=== PATIENT | female | born 1995 | race Caucasian/White ===

== ENCOUNTER → 2016-02-27 | Outpatient (REF) | payer OTHER, MEDICAID ==
[~2016-02-27] MED LIST: ACET50TA PO; BUSP10TA PO; CHIL1CHW3 PO; FLUO20CA8 PO; IBUP-1114 PO
== END ==
LOC: M LAB REF 13:01
PROVIDERS: ATTEND Advanced Practice Midwife
DX: Z11.3 Encounter for screening for infections with a predominantly sexual mode of transmission (principal)

== ENCOUNTER → 2016-03-04 | Outpatient (REF) | payer OTHER, MEDICAID ==
[2016-03-06 00:08] LABS: HEPATITIS C QUANTITATION 530 IU/mL (.)
== END ==
LOC: M SFHCPLAZ 10:59
PROVIDERS: ATTEND Internal Medicine Infectious Disease
DX: B19.20 Unspecified viral hepatitis C without hepatic coma (principal)

== ENCOUNTER → 2016-05-20 | Outpatient (REF) | payer OTHER, MEDICAID ==
[2016-05-22 10:15] LABS: HEPATITIS C QUANTITATION <15 IU/mL (.)
== END ==
LOC: M SFHCPLAZ 10:43
PROVIDERS: ATTEND Internal Medicine Infectious Disease
DX: B19.20 Unspecified viral hepatitis C without hepatic coma (principal)

== ENCOUNTER → 2016-07-01 | Outpatient (REF) | payer OTHER, MEDICAID ==
[2016-07-01 11:39] LABS: ALBUMIN 3.7 GM/DL (3.2-5.2); ALBUMIN/GLOBULIN RATIO 1.23 (1.00-1.93); ALKALINE PHOSPHATASE 122 U/L (45-117); ALT/SGPT 41 U/L (12-78); AST/SGOT 14 U/L (15-37); BILIRUBIN,DIRECT < 0.1 MG/DL (0.0-0.2); BILIRUBIN,TOTAL 0.4 MG/DL (0.2-1.0); TOTAL PROTEIN 6.7 GM/DL (6.4-8.2)
[2016-07-03 00:07] LABS: HEPATITIS C QUANTITATION <15 IU/mL (.)
== END ==
LOC: M SFHCPLAZ 10:03
PROVIDERS: ATTEND Internal Medicine Infectious Disease
DX: B17.10 Acute hepatitis C without hepatic coma (principal)

== ENCOUNTER → 2016-09-11 | Outpatient (REF) | payer OTHER, MEDICAID | LOC: M LAB REF 16:41 | PROVIDERS: ATTEND Physician Assistant | DX: R30.0 Dysuria (principal) ==

== ENCOUNTER → 2016-10-07 | Outpatient (CLI) | payer OTHER, MEDICAID ==
[2016-10-07 14:19] LABS: ALBUMIN 3.8 GM/DL (3.2-5.2); ALBUMIN/GLOBULIN RATIO 1.36 (1.00-1.93); BILIRUBIN,DIRECT 0.2 MG/DL (0.0-0.2); BILIRUBIN,TOTAL 0.5 MG/DL (0.2-1.0); TOTAL PROTEIN 6.6 GM/DL (6.4-8.2)
[2016-10-11 00:06] LABS: HEPATITIS C QUANTITATION 1210 IU/mL (.)
[2016-10-11 10:33] LABS: HCV GENOTYPE REFLEX NS5QA Indicated (.)
== END ==
LOC: M LAB 12:47
PROVIDERS: ATTEND Internal Medicine Infectious Disease
DX: B17.10 Acute hepatitis C without hepatic coma (principal)

== ENCOUNTER → 2017-01-13 | Outpatient (REF) | payer OTHER, MEDICAID ==
[2017-01-13 15:10] LABS: ALBUMIN 3.9 GM/DL (3.2-5.2); ALBUMIN/GLOBULIN RATIO 1.44 (1.00-1.93); BILIRUBIN,DIRECT 0.2 MG/DL (0.0-0.2); BILIRUBIN,TOTAL 0.5 MG/DL (0.2-1.0); TOTAL PROTEIN 6.6 GM/DL (6.4-8.2)
[2017-01-16 14:18] LABS: HEPATITIS C QUANTITATION HCV Not Detected IU/mL (.)
== END ==
LOC: M SFHCPLAZ 10:38
PROVIDERS: ATTEND Internal Medicine Infectious Disease
DX: B18.2 Chronic viral hepatitis C (principal)

== ENCOUNTER → 2017-04-14 | Outpatient (REF) | payer OTHER, MEDICAID ==
[2017-04-14 13:17] LABS: ALBUMIN 3.7 GM/DL (3.2-5.2); ALBUMIN/GLOBULIN RATIO 1.48 (1.00-1.93); ALKALINE PHOSPHATASE 88 U/L (45-117); ALT/SGPT 34 U/L (12-78); AST/SGOT 11 U/L (7-37); BILIRUBIN,DIRECT 0.1 MG/DL (0.0-0.2); BILIRUBIN,TOTAL 0.5 MG/DL (0.2-1.0); TOTAL PROTEIN 6.2 GM/DL (6.4-8.2)
[2017-04-16 08:07] LABS: HEPATITIS C QUANTITATION HCV Not Detected IU/mL (.)
== END ==
LOC: M SFHCPLAZ 11:47
DX: B18.2 Chronic viral hepatitis C (principal)

== ENCOUNTER → 2017-07-10 | Outpatient (CLI) | payer OTHER, MEDICAID ==
[2017-07-10 17:36] LABS: CONTROL LINE HCG INT CTR LINE PRESENT; HCG, SERUM QUALITATIVE NEGATIVE (NEGATIVE)
== END ==
LOC: M SMT 10:33
DX: N91.2 Amenorrhea, unspecified (principal)

== ENCOUNTER 2017-11-01 13:11 | Emergency (ER) | payer OTHER, MEDICAID | END 2017-11-01 15:00 | disposition home or self-care (01) | LOC: M ED 13:11 | DX: S09.90XA Unspecified injury of head, initial encounter (principal); T14.8XXA Other injury of unspecified body region, initial encounter; V86.95XA Unspecified occupant of 3- or 4- wheeled all-terrain vehicle (ATV) injured in nontraffic accident, initial encounter; Y92.89 Other specified places as the place of occurrence of the external cause; Z88.1 Allergy status to other antibiotic agents; Z88.8 Allergy status to other drugs, medicaments and biological substances; Z91.013 Allergy to seafood; F17.210 Nicotine dependence, cigarettes, uncomplicated | CPT/HCPCS: 73552 ==

== ENCOUNTER → 2018-05-25 | Outpatient (REF) | payer OTHER ==
[~2018-05-25] MED LIST changes: -ACET50TA PO; +IBUP-1022 PO; +MAPA500T2 PO
== END ==
LOC: M LAB REF 16:25
PROVIDERS: ATTEND Physician Assistant
DX: J02.9 Acute pharyngitis, unspecified (principal)

== ENCOUNTER → 2018-10-14 | Outpatient (REF) | payer OTHER ==
[2018-10-14 18:01] LABS: APPEARANCE, URINE TURBID (CLEAR); BACTERIA, URINE AUTO 2+ (NEGATIVE); BILIRUBIN, URINE AUTO NEGATIVE (NEGATIVE); BLOOD, URINE BLOOD 3+ (NEGATIVE); COLOR, URINE YELLOW (YELLOW); GLUCOSE, URINE (UA) AUTO NEGATIVE (NEGATIVE); KETONE, URINE AUTO NEGATIVE (NEGATIVE); LEUKOCYTE ESTERASE, URINE AUTO 3+ (NEGATIVE); MUCUS, URINE SMALL (NEGATIVE); NITRITE, URINE AUTO POSITIVE (NEGATIVE); PROTEIN, URINE AUTO 2+ mg/dL (NEGATIVE); RBC, URINE AUTO TNTC /HPF (0-3); SPECIFIC GRAVITY URINE AUTO 1.015 (1.002-1.035); SQUAMOUS EPITHELIAL CELL UR AU 3 /HPF (0-6); UROBILINOGEN, URINE AUTO 0.2 mg/dL (0.0-2.0); WBC, URINE AUTO TNTC /HPF (0-3)
== END ==
LOC: M LAB REF 17:25
PROVIDERS: ATTEND Physician Assistant Medical
DX: N39.0 Urinary tract infection, site not specified (principal)

== ENCOUNTER → 2019-03-09 | Outpatient (CLI) | payer OTHER, MEDICAID ==
[~2019-03-09] MED LIST changes: +FLUO20CA20 PO; -FLUO20CA8 PO
--- NOTE | 2019-03-09 20:07 | REP ---
RIGHT KNEE, COMPLETE: 03/09/2019. Comparison: Bilateral femur, 11/01/2017. Clinical history: Pain and limited range of motion right knee. Findings: Five views are provided. The medial and lateral compartments show no narrowing. There is no spur formation of the tibial spines, peripheral joint margins are patellofemoral joint. No patellar subluxation or dislocation. Question of a small suprapatellar effusion raised on the lateral view. There is no fracture, loose body or osteochondral defect. No avulsion. Impression: 1. Small suprapatellar effusion suspected but no other significant finding. Electronically Signed by Percy Witt MD 03/10/2019 08:05 A
== END ==
LOC: M RAD 16:47
PROVIDERS: ATTEND Nurse Practitioner Family
DX: M25.561 Pain in right knee (principal)

== ENCOUNTER → 2019-04-28 | Outpatient (REF) | payer OTHER, MEDICAID ==
[2019-04-28 18:49] LABS: INFLUENZA A AMPLIFICATION NEGATIVE (NEGATIVE); INFLUENZA B AMPLIFICATION POSITIVE (NEGATIVE)
== END ==
LOC: M LAB REF 17:47
PROVIDERS: ATTEND Physician Assistant
DX: R50.9 Fever, unspecified (principal)

== ENCOUNTER → 2019-10-11 | Outpatient (CLI) | payer OTHER, MEDICAID | LOC: M OUTALCOH 08:23 | PROVIDERS: ATTEND Psychiatry & Neurology Addiction Medicine | DX: F15.20 Other stimulant dependence, uncomplicated (principal) ==

== ENCOUNTER → 2019-11-17 | Outpatient (RCR) | payer OTHER, MEDICAID | LOC: M OUTALCOH 10-22 11:45 | PROVIDERS: ATTEND Psychiatry & Neurology Addiction Medicine | DX: F15.20 Other stimulant dependence, uncomplicated (principal); F13.20 Sedative, hypnotic or anxiolytic dependence, uncomplicated; F16.20 Hallucinogen dependence, uncomplicated; F17.200 Nicotine dependence, unspecified, uncomplicated ==

== ENCOUNTER → 2019-12-03 | Outpatient (REF) | payer MEDICAID, OTHER ==
[2019-12-03 18:32] LABS: BASO % 0.6 % (0.0-1.0); EOS # 0.1 10^3/uL (0.0-0.5); EOS % 1.6 % (0.0-3.0); HEMATOCRIT 38.6 % (36.0-47.0); HEMOGLOBIN 12.2 g/dl (12.0-15.5); LYMPH # 1.8 10^3/uL (1.5-5.0); LYMPH % 35.4 % (24.0-44.0); MEAN CORPUSCULAR HEMOGLOBIN 28.6 pg (27.0-33.0); MEAN CORPUSCULAR HGB CONC 31.6 g/dl (32.0-36.5); MEAN CORPUSCULAR VOLUME 90.6 fl (80.0-96.0); MONO # 0.3 10^3/uL (0.0-0.8); MONO % 6.3 % (0.0-5.0); NEUTROPHILS # 2.8 10^3/uL (1.5-8.5); NEUTROPHILS % 55.9 % (36.0-66.0); PLATELET COUNT, AUTOMATED 189 10^3/uL (150-450); RED BLOOD COUNT 4.26 10^6/uL (4.00-5.40); WHITE BLOOD COUNT 4.9 10^3/uL (4.0-10.0)
[2019-12-03 18:34] LABS: ALBUMIN 3.7 GM/DL (3.2-5.2); ALT/SGPT 25 U/L (12-78); BILIRUBIN,TOTAL 0.2 MG/DL (0.2-1.0); BLOOD UREA NITROGEN 8 MG/DL (7-18); CALCIUM LEVEL 8.9 MG/DL (8.5-10.1); CARBON DIOXIDE LEVEL 30 MEQ/L (21-32); CHLORIDE LEVEL 106 MEQ/L (98-107); CREATININE FOR GFR 0.66 MG/DL (0.55-1.30); GLOMERULAR FILTRATION RATE > 60.0 (>60); GLUCOSE, FASTING 65 MG/DL (70-100); POTASSIUM SERUM 4.1 MEQ/L (3.5-5.1); SODIUM LEVEL 140 MEQ/L (136-145); TOTAL PROTEIN 6.3 GM/DL (6.4-8.2)
[2019-12-03 19:27] LABS: HEPATITIS C VIRUS ABY INDEX > 11.0 INDEX (<0.8)
[2020-01-03 14:07] LABS: HEPATITIS C QUANTITATION 6270 IU/mL (.)
== END ==
LOC: M LAB REF 16:40
PROVIDERS: ATTEND Family Medicine Addiction Medicine
DX: B19.20 Unspecified viral hepatitis C without hepatic coma (principal)

== ENCOUNTER 2019-12-15 08:00 | Outpatient (RCR) | payer MEDICAID, OTHER | END 2019-12-18 | LOC: M OUTALCOH 08:00 | PROVIDERS: ATTEND Psychiatry & Neurology Addiction Medicine | DX: F15.20 Other stimulant dependence, uncomplicated (principal); F13.20 Sedative, hypnotic or anxiolytic dependence, uncomplicated; F16.20 Hallucinogen dependence, uncomplicated; F17.200 Nicotine dependence, unspecified, uncomplicated ==

== ENCOUNTER → 2020-05-18 | Outpatient (CLI) | payer MEDICAID | LOC: M OUTALCOH 08:18 | PROVIDERS: ATTEND Psychiatry & Neurology Psychiatry | DX: Z13.9 Encounter for screening, unspecified (principal) ==

== ENCOUNTER → 2020-06-16 | Outpatient (RCR) | payer MEDICAID | LOC: M OUTALCOH 05-18 13:00 | PROVIDERS: ATTEND Psychiatry & Neurology Psychiatry | DX: F15.20 Other stimulant dependence, uncomplicated (principal); F17.200 Nicotine dependence, unspecified, uncomplicated; F16.20 Hallucinogen dependence, uncomplicated ==

== ENCOUNTER 2020-07-14 08:45 | Outpatient (RCR) | payer MEDICAID | END 2020-07-17 | LOC: M OUTALCOH 08:45 | PROVIDERS: ATTEND Psychiatry & Neurology Psychiatry | DX: F15.20 Other stimulant dependence, uncomplicated (principal); F16.20 Hallucinogen dependence, uncomplicated; F17.200 Nicotine dependence, unspecified, uncomplicated ==

== ENCOUNTER 2020-08-11 15:00 | Outpatient (RCR) | payer MEDICAID, OTHER | END 2020-08-16 | LOC: M OUTALCOH 15:00 | PROVIDERS: ATTEND Psychiatry & Neurology Psychiatry | DX: F15.20 Other stimulant dependence, uncomplicated (principal); F16.20 Hallucinogen dependence, uncomplicated; F17.200 Nicotine dependence, unspecified, uncomplicated ==

== ENCOUNTER 2020-08-30 02:04 | Emergency (ER) | payer MEDICAID, OTHER ==
[~2020-08-30] VITALS: Ht 154.9 cm; Wt 70.9 kg
[~2020-08-30 02:04] MED LIST changes: +FLUO-96 PO; -FLUO20CA20 PO
[2020-08-30 02:06] VITALS: BP 141/88
[2020-08-30] MEDS ORDERED: HYDR-3363 PO (02:18)
[2020-08-30] MEDS ORDERED: LAMI1TAB7 PO (02:18)
[2020-08-30] MEDS ORDERED: MECL-86 PO (02:18)
[2020-08-30] MEDS ORDERED: METH36TA5 PO (02:18)
== END 2020-08-30 02:20 | disposition left against medical advice (07) ==
LOC: M ED 02:04
DX: Z53.21 Procedure and treatment not carried out due to patient leaving prior to being seen by health care provider (principal)

== ENCOUNTER 2020-09-15 13:07 | Outpatient (RCR) | payer MEDICAID, OTHER ==
[~2020-09-15 13:07] MED LIST changes: -FLUO-96 PO; +FLUO20CA20 PO; +HYDR-3363 PO; +LAMI1TAB7 PO; +MECL-86 PO; +METH36TA5 PO
== END 2020-09-16 ==
LOC: M OUTALCOH 13:07
PROVIDERS: ATTEND Psychiatry & Neurology Psychiatry
DX: F15.20 Other stimulant dependence, uncomplicated (principal); F16.20 Hallucinogen dependence, uncomplicated; F17.200 Nicotine dependence, unspecified, uncomplicated

== ENCOUNTER 2020-10-13 14:00 | Outpatient (RCR) | payer MEDICAID | END 2020-10-17 | LOC: M OUTALCOH 14:00 | PROVIDERS: ATTEND Psychiatry & Neurology Psychiatry | DX: F15.20 Other stimulant dependence, uncomplicated (principal); F16.20 Hallucinogen dependence, uncomplicated; F17.200 Nicotine dependence, unspecified, uncomplicated ==

== ENCOUNTER → 2020-10-13 | Outpatient (CLI) | payer OTHER ==
[2020-10-13 15:36] LABS: BASO % 0.8 % (0.0-1.0); EOS # 0.1 10^3/uL (0.0-0.5); EOS % 1.6 % (0.0-3.0); HEMATOCRIT 43.3 % (36.0-47.0); HEMOGLOBIN 14.2 g/dl (12.0-15.5); LYMPH # 1.7 10^3/uL (1.5-5.0); LYMPH % 34.8 % (24.0-44.0); MEAN CORPUSCULAR HGB CONC 32.8 g/dl (32.0-36.5); MEAN CORPUSCULAR VOLUME 91.4 fl (80.0-96.0); MONO # 0.4 10^3/uL (0.0-0.8); MONO % 7.6 % (2.0-8.0); NEUTROPHILS # 2.7 10^3/uL (1.5-8.5); PLATELET COUNT, AUTOMATED 173 10^3/uL (150-450); RED BLOOD COUNT 4.74 10^6/uL (4.00-5.40); WHITE BLOOD COUNT 4.9 10^3/uL (4.0-10.0)
[2020-10-13 15:38] LABS: ALT/SGPT 22 U/L (12-78); BILIRUBIN,TOTAL 0.6 MG/DL (0.2-1.0); BLOOD UREA NITROGEN 15 MG/DL (7-18); CALCIUM LEVEL 9.3 MG/DL (8.5-10.1); CARBON DIOXIDE LEVEL 29 MEQ/L (21-32); CHLORIDE LEVEL 109 MEQ/L (98-107); CREATININE FOR GFR 0.78 MG/DL (0.55-1.30); GLOMERULAR FILTRATION RATE > 60.0 (>60); GLUCOSE, FASTING 72 MG/DL (70-100); POTASSIUM SERUM 4.7 MEQ/L (3.5-5.1); SODIUM LEVEL 141 MEQ/L (136-145)
[2020-10-13 18:13] LABS: HIV 1&2 SCREEN CENTAUR NEGATIVE (NEGATIVE)
[2020-10-19 16:13] LABS: HEPATITIS C QUANTITATION 460 IU/mL (.)
== END ==
LOC: M PLALAB 13:44
PROVIDERS: ATTEND Internal Medicine Infectious Disease
DX: B18.2 Chronic viral hepatitis C (principal)

== ENCOUNTER 2020-11-10 13:33 | Outpatient (RCR) | payer OTHER, MEDICAID | END 2020-11-16 | LOC: M OUTALCOH 13:33 | PROVIDERS: ATTEND Psychiatry & Neurology Psychiatry | DX: F15.20 Other stimulant dependence, uncomplicated (principal); F16.20 Hallucinogen dependence, uncomplicated; F17.200 Nicotine dependence, unspecified, uncomplicated ==

== ENCOUNTER → 2020-11-27 | Outpatient (CLI) | payer MEDICAID | LOC: M LABSMTC 09:27 | PROVIDERS: ATTEND Anesthesiology | DX: Z01.812 Encounter for preprocedural laboratory examination (principal); Z20.822 Contact with and (suspected) exposure to COVID-19 ==

== ENCOUNTER → 2020-11-27 | Outpatient (CLI) | payer MEDICAID ==
[2020-11-27 14:03] LABS: HEMATOCRIT 41.6 % (36.0-47.0); HEMOGLOBIN 13.6 g/dl (12.0-15.5)
[2020-11-27 14:42] LABS: BLOOD UREA NITROGEN 14 MG/DL (7-18); CALCIUM LEVEL 8.6 MG/DL (8.5-10.1); CARBON DIOXIDE LEVEL 27 MEQ/L (21-32); CHLORIDE LEVEL 108 MEQ/L (98-107); CREATININE FOR GFR 0.81 MG/DL (0.55-1.30); GLOMERULAR FILTRATION RATE > 60.0 (>60); GLUCOSE, FASTING 84 MG/DL (70-100); POTASSIUM SERUM 5.1 MEQ/L (3.5-5.1); SODIUM LEVEL 138 MEQ/L (136-145)
== END ==
LOC: M PLALAB 09:35
PROVIDERS: ATTEND Podiatrist
DX: T84.213A Breakdown (mechanical) of internal fixation device of bones of foot and toes, initial encounter (principal); M79.671 Pain in right foot

== ENCOUNTER 2020-12-01 09:37 | Day surgery (SDC) | payer OTHER ==
[~2020-12-01] VITALS: Ht 154.9 cm; Wt 68.0 kg
[~2020-12-01 09:37] MED LIST changes: +LIDOCAINE 1% MDV 20ML VIAL SQ PRN; +LIDOCAINE 2% 100MG/5ML SDV (FOR ANES.) As Ordered ONE; +LR 1,000 ML IV ONE; +MIDAZOLAM INJ 2MG/2ML VIAL (J2250 PER 1MG) As Ordered ONE; +ceFAZolin SOD 2 GM in IV 1 EA IV ONE; +fentaNYL 100 MCG/2 ML INJECTION (J3010) As Ordered ONE; +propofoL 200 MG/20 ML VIAL As Ordered ONE
--- OUTSIDE RECORDS SUMMARY | 2020-12-01 09:41 | CCD ---
Author Author [facility] Organization [facility] Address Unknown Phone Unavailable Care Team Providers Care Ornithology Teacher Name Role Phone Mikey Bronson Unavailable PROBLEMS Type Condition ICD9-CM Code [id number] Code Onset Dates Condition S tatus W/U Status Risk SNOMED Code Notes Problem Seasonal allergies J30.2 Active confirmed 3 34747037 Problem Chronic hepatitis C without hepatic coma B18.2 Active confirmed 844986467 Problem RLS (restless legs syndrome) G25.81 Active confirme d 51958884 Problem TASIA (generalized anxiety disorder) F41.1 Activ e confirmed 89596393 Problem Tobacco abuse Z72.0 Active confirmed 787805 000 Problem History of heroin abuse Z87.898 Active confirmed 564906850104202 Problem Restless legs syndrome (RLS) G25.81 Active confirme d 37725199 ALLERGIES Allergen (clinical drug ingredient) Drug/Non Drug Allergy do cumented on EMR Reaction Allergy Type Onset Date Status sulfamethoxazole / trimethoprim Bactrim([facility] Code:[address]-69) hives Drug Allergy Active Shellfish Shellfish Anaphylaxis Non Drug Allergy Active Pollen,Cats,Dogs Unknown Non Drug Allergy Ac tive ENCOUNTERS from 1993 to 2020-11-10 Encounter Location Date Provider Diagnosis [address] [phone] [place] [address] Oct, Mikey Blasah IMMUNIZATIONS Vaccine Route Administration Date Status Gardasil Unknown Mar 07, 2007 Administered TDAP IM Intramuscular June 26, 2015 Administered Hepatitis A Adult 1.0mL Havrix IM Intramuscular Sep 19, 2015 Administered Hepatitis A Adult 1.0mL Havrix IM Intramuscular July 01, 2016 Administered TDAP Unknown Nov 02, 2004 Administered TDAP Unknown Oct 25, 2006 Administered Gardasil Unknown August 11, 2006 Administered Gardasil Unknown Oct 25, 2006 Administered DTAP 0.5mL Infanrix Unknown 1993 Administered HIB 0.5mL Unknown Dec 20, 1995 Administered HIB 0.5mL Unknown Dec 24, 1994 Administered HIB 0.5mL Unknown April 23, 1994 Administered HIB 0.5mL Unknown 1993 Administered DTAP 0.5mL Infanrix Unknown July 11, 1998 Administered DTAP 0.5mL Infanrix Unknown Dec 20, 1995 Administered DTAP 0.5mL Infanrix Unknown Dec 24, 1994 Administered DTAP 0.5mL Infanrix Unknown April 18, 1994 Administered Imm: IPV 0.5mL Polio Unknown 1993 Administere d Imm: IPV 0.5mL Polio Unknown April 23, 1994 Administere d Imm: IPV 0.5mL Polio Unknown Dec 24, 1994 Administere d Imm: IPV 0.5mL Polio Unknown July 11, 1998 Administere d Influenza 6mo & up Fluzone IM Intramuscular Jan 22, 2016 Admi nistered MMR 0.5mL Unknown Oct 29, 1994 Administered MMR 0.5mL Unknown July 11, 1998 Administered Hepatitis B Ped & Adol 0.5mL Engerix-B Unknown 1993 Administered Hepatitis B Ped & Adol 0.5mL Engerix-B Unknown Dec 27 994 Administered Hepatitis B Ped & Adol 0.5mL Engerix-B Unknown July 23, 1994 Administered SOCIAL HISTORY Tobacco Use: Social History Observation Description Date Details (start date - stop date) Current Smoker Sex Assigned At : Social History Observation Description Sex Assigned At Unknown Education: Question Answer Notes 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 Yes LMP: 09/2020 with Men only BMI Care Goal Follow-Up Question Answer Notes Above Normal BMI Follow-Up Dietary needs education Tobacco Use: Question Answer Notes Are you a: current smoker Smoking Cessation Information Given 10/12/2020 Patient counseled on the dangers of tobacco use and urged to quit: 10/12/2020 How many cigarettes a day do you smoke? 6-10 Are you interested in quitting? Not ready to quit Counseled the patient on smoking effects, education provided 10/12/2020 REASON FOR REFERRAL No Information VITAL SIGNS No information MEDICATIONS Medication SIG (Take, Route, Frequency, Duration) Notes Start Da te End Date Status EpiPen 2-Tree 0.3 MG/0.3ML as directed Injection prn for 30 day(s) Active Requip 1 MG 1 tablet 1 to 3 hours before bedtime Orally before bedtime for 30 day(s) Active Mavyret 100-40 MG 3 tablets Orally Once a day for 28 day(s) Oct, Active PROCEDURES No Information RESULTS No Results REASON FOR VISIT no show MEDICAL (GENERAL) HISTORY Type Description Date Medical History Postivie flu screen 01/10/12 , started on antibiotic 01/13/12 for URI. Medical History Hepatitis C genotype 1b xiang l load 2560 01/2015 Ultrasound RUQ normal 01/2015 treated with harvoni x 3months CURED HCV ND Medical History Anxiety Medical History History of Alcohol Abuse, no withdrawl Medical History Influenza B 04/28/2019 Medical History Chronic hepatitis C genotype 1b HCVRNA 6270 12/03/2019 relapse IV Surgical History Lt foot bunion surgery 2009 Surgical History Tonsillectomy 2010 Surgical History cholecystectomy 2018 Hospitalization History childbirth Goals Section No Information Health Concerns No Information MEDICAL EQUIPMENT No Information MENTAL STATUS No Information FUNCTIONAL STATUS No Information ASSESSMENTS No Information PLAN OF TREATMENT Medication Medication Name Sig Start Date Stop Date EpiPen 2-Tree 0.3 MG/0.3ML as directed Injection prn for 30 day(s ) Mavyret 100-40 MG 3 tablets Orally Once a day for 28 day(s) 03 2020 Requip 1 MG 1 tablet 1 to 3 hours before bedtime Orally before bedtime for 30 day(s) Insurance Providers Payer Name Payer Address Payer Phone Insured Name Patient Relati onship to Insured Coverage Start Date Coverage End Date MEDICAID [employer] [address] [facility] [id number] [phone] REFF,KEYSHA ALEXANDER self [facility] [address] [facility] [phone] REFF,CHARLOTTE LEONARDO CATHERINE self
--- OUTSIDE RECORDS SUMMARY | 2020-12-01 09:41 | CCD ---
Author Author [facility] [email or web address] [facility] Organization [facility] Address Unknown Phone Unavailable Care Team Providers Care Needle Grinder Name Role Phone Mikey Bronson Unavailable PROBLEMS Type Condition ICD9-CM Code PBH04-QA Code Onset Dates Condition S tatus W/U Status Risk SNOMED Code Notes Problem Seasonal allergies J30.2 Active confirmed 3 50123815 Problem Chronic hepatitis C without hepatic coma B18.2 Active confirmed 214852287 Problem RLS (restless legs syndrome) G25.81 Active confirme d 41610686 Problem TASIA (generalized anxiety disorder) F41.1 Activ e confirmed 93197180 Problem Tobacco abuse Z72.0 Active confirmed 509256 000 Problem History of heroin abuse Z87.898 Active confirmed 084828251902884 Problem Restless legs syndrome (RLS) G25.81 Active confirme d 69588122 ALLERGIES Allergen (clinical drug ingredient) Drug/Non Drug Allergy do cumented on EMR Reaction Allergy Type Onset Date Status sulfamethoxazole / trimethoprim Bactrim([facility] Code:[address]-49) hives Drug Allergy Active Shellfish Shellfish Anaphylaxis Non Drug Allergy Active Pollen,Cats,Dogs Unknown Non Drug Allergy Ac tive ENCOUNTERS from 1993 to 2020-10-24 Encounter Location Date Provider Diagnosis [address] [phone] [place] [address] Oct, Mikey Blasah IMMUNIZATIONS Vaccine Route Administration [...] Polio Unknown July 11, 1998 Administere d MMR 0.5mL Unknown Oct 29, 1994 Administered MMR 0.5mL Unknown July 11, 1998 Administered Influenza 6mo & up Fluzone IM Intramuscular Jan 22, 2016 Admi nistered Hepatitis B Ped & Adol 0.5mL Engerix-B [...] Information RESULTS No Results REASON FOR VISIT medication delivery MEDICAL (GENERAL) HISTORY Type Description Date Medical [...] bedtime Orally before bedtime for 30 day(s) Next Appt Details Provider Name:Mikey Mars Audie, 2020-10-2 3 10:00:00 AM, [address] [place] [address], , [place], [address], Insurance Providers Payer Name Payer Address Payer Phone Insured Name Patient Relati onship to Insured Coverage Start Date Coverage End Date MV [address] [place] [phone] [place] [facility] MEDICAID [employer] [address] [facility] [id number] REFF,KEYSHA ALEXANDER self
--- OUTSIDE RECORDS SUMMARY | 2020-12-01 09:41 | CCD ---
Author Author [facility] Organization [facility] Address Unknown Phone Unavailable Care Team Providers Care Manager Oncology Name Role Phone Mikey Bronson Unavailable PROBLEMS Type Condition ICD9-CM Code PRB79-DJ Code Onset Dates Condition S tatus W/U Status Risk SNOMED Code Notes Problem Seasonal allergies J30.2 Active confirmed 3 69262906 Problem Chronic hepatitis C without hepatic coma B18.2 Active confirmed 029099736 Problem RLS (restless legs syndrome) G25.81 Active confirme d 09034963 Problem TASIA (generalized anxiety disorder) F41.1 Activ e confirmed 97951828 Problem Tobacco abuse Z72.0 Active confirmed 097446 000 Problem History of heroin abuse Z87.898 Active confirmed 259898287317564 Problem Restless legs syndrome (RLS) G25.81 Active confirme d 27900105 ALLERGIES Allergen (clinical drug ingredient) Drug/Non Drug Allergy do cumented on EMR Reaction Allergy Type Onset Date Status sulfamethoxazole / trimethoprim Bactrim([facility] Code:[address]-46) hives Drug Allergy Active Shellfish Shellfish Anaphylaxis Non Drug Allergy Active Pollen,Cats,Dogs Unknown Non Drug Allergy Ac tive ENCOUNTERS from 1993 to 2020-10-20 Encounter Location Date Provider Diagnosis [facility] [place] [address] [facility] [address] [phone] [place] [address] Sep, Mikey Bronson Chronic hepatitis C without hepatic coma B18.2 ; Tobacco abuse Z72.0 ; Seasonal allergies J30.2 ; History of heroin abuse Z87.898 ; TASIA (generalized anxiety disorder) F41.1 and Restless legs syndrome (RLS) G25.81 IMMUNIZATIONS Vaccine Route Administration Date Status Gardasil [...] REASON FOR REFERRAL No Information VITAL SIGNS Weight 151 lbs Sep, Weight-kg 68.49 kg Sep, Height 63 3/4 in Sep, BMI 26.12 kg/m2 Sep, Heart Rate 115 /min Sep, Respiratory Rate 18 /min Sep, Temperature 97 degrees Fahrenheit Sep, Oximetry 100% Sep, Blood pressure systolic 112 mm Hg Sep, Blood pressure diastolic 72 mm Hg Sep, MEDICATIONS Medication SIG (Take, Route, Frequency, Duration) Notes Start Da te End Date Status EpiPen 2-Tree 0.3 MG/0.3ML as directed Injection prn for 30 day(s) Active Requip 1 MG 1 tablet 1 to 3 hours before bedtime Orally before bedtime for 30 day(s) Active Mavyret 100-40 MG 3 tablets Orally Once a day for 28 day(s) Oct, Active PROCEDURES No Information RESULTS Component Value Reference Range CBC with Differential Reviewed date:10/16/2020 08:38:24 Interpretation: Performing Lab:[facility], [facility] [id number] , ,[place] [address] WHITE BLOOD COUNT 4.9 4.0-10.0 RED BLOOD COUNT 4.74 4.00-5.40 HEMOGLOBIN 14.2 12.0-15.5 HEMATOCRIT 43.3 36.0-47.0 MEAN CORPUSCULAR VOLUME 91.4 80.0-96.0 MEAN CORPUSCULAR HEMOGLOBIN 30.0 27.0-33.0 MEAN CORPUSCULAR HGB CONC 32.8 32.0-36.5 RED CELL DISTRIBUTION WIDTH 12.3 11.5-14.5 PLATELET COUNT, AUTOMATED 173 150-450 NEUTROPHILS % 55.0 36.0-66.0 LYMPH % 34.8 24.0-44.0 MONO % 7.6 2.0-8.0 EOS % 1.6 0.0-3.0 BASO % 0.8 0.0-1.0 NEUTROPHILS # 2.7 1.5-8.5 LYMPH # 1.7 1.5-5.0 MONO # 0.4 0.0-0.8 EOS # 0.1 0.0-0.5 BASO # 0.0 0.0-0.2 Comprehensive Metabolic Profile (CMP) Reviewed date:10/16/2020 08:38:24 Interpretation: Performing Lab:[facility] [address] [facility] [address] [address] , ,[facility] GLUCOSE, FASTING 72 70-100 BLOOD UREA NITROGEN 15 7-18 CREATININE FOR GFR 0.78 0.55-1.30 GLOMERULAR FILTRATION RATE > 60.0 >60 SODIUM LEVEL 141 136-145 POTASSIUM SERUM 4.7 3.5-5.1 CHLORIDE LEVEL 109 98-107 CARBON DIOXIDE LEVEL 29 21-32 CALCIUM LEVEL 9.3 8.5-10.1 AST/SGOT 6 7-37 ALT/SGPT 22 12-78 ALKALINE PHOSPHATASE 65 45-117 BILIRUBIN,TOTAL 0.6 0.2-1.0 TOTAL PROTEIN 7.0 6.4-8.2 ALBUMIN 4.0 3.2-5.2 ALBUMIN/GLOBULIN RATIO 1.3 1.2-2.2 HIV 1&2 ANTIBODY SCREEN Reviewed date:10/16/2020 08:38:24 Interpretation: Performing Lab:[facility] [address] [facility] [address] [address] , ,[facility] HEPATITIS C FIBROSURE [id number] Reviewed date:10/20/2020 17:23:38 Interpretation: Performing Lab:[facility], [facility] [address] [facility] [address] , ,[facility] FIBROSIS SCORE 0.04 0.00-0.21 FIBROSIS STAGE . NECROINFLAM SCORE 0.03 0.00-0.17 NECROINFLAMM GRADE A0-No activity . ALPHA 2-MACROGLOBULIN 161 110-276 HAPTOGLOBIN 121 33-278 APOLIPOPROTEIN A-1 139 116-209 TOTAL BILIRUBIN 0.4 0.0-1.2 GGT 11 0-60 ALT 15 0-40 INTERPRETATION . FIBROSIS SCORING . NECROINFLAM SCORING . LIMITATIONS . COMMENT : . HEPATITIS C GENOTYPE Reviewed date:10/20/2020 17:23:38 Interpretation: Performing Lab:[facility], [facility] [address] [facility] [id number] , ,[place] [address] HEPATITIS C VIRUS GENOTYPE TNP . COMMENT FOR HEPC GENOTYPE . HEPATITIS C QUANT BY PCR Reviewed date:10/20/2020 17:23:38 Interpretation: Performing Lab:[facility], [facility] [address] [facility] [address] , ,[place] [address] HEPATITIS C QUANTITATION 460 . Hepatitis C log10 2.663 . REASON FOR VISIT follow up MEDICAL (GENERAL) HISTORY Type Description Date Medical [...] No Information FUNCTIONAL STATUS No Information ASSESSMENTS Encounter Date Diagnosis Assessment Notes Treatment Notes Treatm ent Clinical Notes Sep, Chronic hepatitis C without hepatic coma (ICD-10 - B18.2) genotype 1B treated 2016 with 8 weeks of Harvoni with cure Relapsed using IV drugs 2019 currently has genotype 1a HCV RNA 6270 with normal LFTs. Patient ready for treatment if she has viremia she has MVP and will be treated with 8 weeks of Mavyret 3 tablets daily for 8 weeks with supper. She will remain abstinent of alcohol and drugs. Patient has been vaccinated for hepatitis A and B. Patient will have blood work done today and if hepatitis C has viremia prescription will be sent to [facility]. Sep, Tobacco abuse (ICD-10 - Z72.0) Sep, Seasonal allergies (ICD-10 - J30.2) shellfish allergy Sep, History of heroin abuse (ICD-10 - Z87.898) She will remain abstinent of alcohol and drugs She follows up at outpatient [facility] Sep, TASIA (generalized anxiety disorder) (ICD-10 - F41 .1) She is off the anxiety medication and doing well she will call if she has recurrent symptoms of depression or anxiety. Sep, Restless legs syndrome (RLS) (ICD-10 - G25.81) PLAN OF TREATMENT Medication Medication Name Sig Start Date Stop Date EpiPen 2-Tree 0.3 MG/0.3ML as directed Injection prn for 30 day(s ) Mavyret 100-40 MG 3 tablets Orally Once a day for 28 day(s) 03 S 2020 Requip 1 MG 1 tablet 1 to 3 hours before bedtime Orally before bedtime for 30 day(s) Treatment Notes Assessment Notes Clinical Notes Chronic hepatitis C without hepatic coma genotype 1B treated 2016 with 8 weeks of Harvoni with cureRelapsed using IV drugs 2019 currently has genotype 1a HCV RNA 6270 with normal LFTs. Patient ready for treatment if she has viremia she has MVP and will be treated with 8 weeks of Mavyret 3 tablets daily for 8 weeks with supper.She will remain abstinent of alcohol and drugs.Patient has been vaccinated for hepatitis A and B.Patient will have blood work done today and if hepatitis C has viremia prescription will be sent to [facility]. Seasonal allergies shellfish allergy History of heroin abuse She will remain abstinent of alcohol and drugsShe follows up at outpatient [facility] TASIA (generalized anxiety disorder) She i s off the anxiety medication and doing well she will call if she has recurrent symptoms of depression or anxiety. Next Appt Details 4 Weeks Reason: Provider Name:Mikey Bronson, 2020-10- 3 10:00:00 AM, [address] [facility], , [place], [address], Insurance Providers Payer Name Payer Address Payer Phone Insured Name Patient Relati onship to Insured Coverage Start Date Coverage End Date MEDICAID [employer] [address] [place] [id number] [phone] REFF,KEYSHA ALEXANDER self [facility] [address] [facility] [phone] REFF,CHARLOTTE locke
--- OUTSIDE RECORDS SUMMARY | 2020-12-01 09:41 | CCD | Continuity of Care Document ---
Author Author [facility] Organization [facility] Address Unknown Phone Unavailable Care Team Providers Care Security Site Supervisor Name Role Phone Ginger Briones Unavailable Unavailable Allergies, Adverse Reactions, Alerts Substance Reaction Status Criticality shellfish derived Active No Information Medications Medication Instructions Dosage Effective Dates (start - stop) Sta tus Comments Concerta 18 mg tablet,extended release take 1 tablet b y oral route every day in the morning 18 MG - Active Lamictal 100 mg tablet take 1 tablet by oral route every day 100 MG - Active Econtra One-Step 1.5 mg tablet As soon as possible Aug - No Longer Active Problems Condition Effective Dates (start - stop) Clinical Status C omments Encounter for prescription of emergency contraception Human immunodeficiency virus [HIV] counseling Encounter for test, result negative Encounter for ot general cnsl and advice on contraception Encounter for removal of intrauterine contraceptive device Other sex counseling Procedures Procedure Date E Contra One Step Results Test Name Date and Time Measure Units Reference Range Abnormal Flag St atus Comments No Information Advance Directives Directive Yes / No Effective Date File Name No Information Encounters Encounter Description Practice Location Reason(s) For Visit Diagnose s Date Provider Providers [facility] [place] [address] [place] [address], [id number], [place] tel:[phone] [facility] Encounter for presc ription of emergency contraception Maryjane Miles. [address] [place], [place], [id number], [place]. tel:[phone] Referring Provider: Ginger Wesley, [address] [place], [place], [id number]. tel:[phone] [facility] [address] [place], [place], [id number], tel:[phone] [facility] [place] Human immunodeficie ncy virus [HIV] counselingEncounter for test, result negativeEncounter for oth general cnsl and advice on contraceptionEncounter for removal of intrauterine contraceptive deviceOther sex counseling Enrrique Mercado. [address], [place], [id number], [place]. tel:[phone] Referring Provider: Lenore Osuna, [address] [place] [address], [id number]. tel:[phone] Family History Family Member Diagnosis Age At Onset 1st degree relative No hx of cancer of breast, colon, endome trium or ovary Mother Diabetes mellitus 1st degree relative No hx of coronary heart disease (female <65, male <55) Father Venous thromboembolism 50 Immunizations Vaccine Date Status Comments No Information Payers Payer name Insurance type Covered democrat ID Authorization(s ) [facility] CI [id number] Social History Type Description Quantity Date Captured Comments Alcohol Use Details Unknown Caffeine Use Details Unknown Tobacco Use Status Smoking Status Heavy tobacco smoker Sex Female Vital Signs Date / Time: Height Weight BMI Pulse Rate Blood Pressure Temperatu re Respiratory Rate Body Surface Area Head Circumference BMI percentile Pulse Ox In haled Ox No Information Chief Complaint And Reason For Visit No Information Reason For Referral Reason For Referral No Information Plan Of Treatment Date Type Action Status Goal Tobacco cessation counseling com pleted History Of Present Illness Encounter Date Complaint History Of Present I llness No Information Functional Status Date Functional Assessment No Information Medications Administered Medication Instructions Dosage Effective Dates (start - stop) Sta tus Comments No Information Instructions Date Instruction Additional Informati on No Information Assessments Type Assessment Date assessment Encounter for prescription of emergency contraception Goals Health Concern Goal Type Priority Status Date No Information Medical Equipment Description Device [place] Device Identifier Effective Parmjit es (start - stop) Status No Information Mental Status Date Cognitive Assessment No Information Health Concerns Observation Date No Information Concern Status Date No Information Physical Examination Exam Findings Details No Information
--- OUTSIDE RECORDS SUMMARY | 2020-12-01 09:42 | CCD ---
Author Author [facility] Organization [facility] Address Unknown Phone Unavailable Care Team Providers Care Clinical Massage Therapist Name Role Phone Hector Plunkett MD Unavailable Unavailable Hector Plunkett MD Unavailable Unavailable Madisyn Wesley Unavailable Unavailable Madisyn Wesley Unavailable Unavailable Madisyn Wesley Unavailable Unavailable Madisyn Wesley Unavailable Unavailable Madisyn Wesley Unavailable Unavailable Madisyn Wesley Unavailable Unavailable Madisyn Wesley Unavailable Unavailable Madisyn Wesley Unavailable Unavailable Madisyn Wesley Unavailable Unavailable Madisyn Wesley Unavailable Unavailable Madisyn Wesley Unavailable Unavailable Madisyn Wesley Unavailable Unavailable Madisyn Wesley Unavailable Unavailable Koosharem, J Ginger PA Unavailable Unavailable Koosharem, J Ginger PA Unavailable Unavailable Koosharem, J Ginger PA Unavailable Unavailable Koosharem, J Ginger PA Unavailable Unavailable Koosharem, J Ginger PA Unavailable Unavailable Koosharem, J Ginger PA Unavailable Unavailable Koosharem, J Ginger PA Unavailable Unavailable Koosharem, J Ginger PA Unavailable Unavailable Koosharem, J Ginger PA Unavailable Unavailable HILL, L MARK ANTHONY CNM Unavailable Unavailable HILL, L MARK ANTHONY CNM Unavailable Unavailable HILL, L MARK ANTHONY CNM Unavailable Unavailable HILL, L MARK ANTHONY CNM Unavailable Unavailable HILL, L MARK ANTHONY CNM Unavailable Unavailable HILL, L MARK ANTHONY CNM Unavailable Unavailable HILL, L MARK ANTHONY CNM Unavailable Unavailable HILL, L MARK ANTHONY CNM Unavailable Unavailable HILL, L MARK ANTHONY CNM Unavailable Unavailable HILL, L MARK ANTHONY CNM Unavailable Unavailable HILL, L MARK ANTHONY CNM Unavailable Unavailable HILL, L MARK ANTHONY CNM Unavailable Unavailable HILL, L MARK ANTHONY CNM Unavailable Unavailable HILL, L MARK ANTHONY CNM Unavailable Unavailable HILL, L MARK ANTHONY CNM Unavailable Unavailable HILL, L MARK ANTHONY CNM Unavailable Unavailable HILL, L MARK ANTHONY CNM Unavailable Unavailable HILL, L MARK ANTHONY CNM Unavailable Unavailable HILL, L MARK ANTHONY CNM Unavailable Unavailable HILL, L MARK ANTHONY CNM Unavailable Unavailable HILL, L MARK ANTHONY CNM Unavailable Unavailable HILL, L MARK ANTHONY CNM Unavailable Unavailable HILL, L MARK ANTHONY CNM Unavailable Unavailable HILL, L MARK ANTHONY CNM Unavailable Unavailable HILL, L MARK ANTHONY CNM Unavailable Unavailable HILL, L MARK ANTHONY CNM Unavailable Unavailable HILL, L MARK ANTHONY CNM Unavailable Unavailable HILL, L MARK ANTHONY CNM Unavailable Unavailable HILL, L MARK ANTHONY CNM Unavailable Unavailable Phoebe Hickey MD Unavailable Unavailable Phoebe Hickey MD Unavailable Unavailable Phoebe Hickey MD Unavailable Unavailable Phoebe Hickey MD Unavailable Unavailable Phoebe Hickey MD Unavailable Unavailable Phoebe Hickey MD Unavailable Unavailable Phoebe Hickey MD Unavailable Unavailable Phoebe Hickey MD Unavailable Unavailable Phoebe Hickey MD Unavailable Unavailable Phoebe Hickey MD Unavailable Unavailable Phoebe Hickey MD Unavailable Unavailable Phoebe Hickey MD Unavailable Unavailable Phoebe Hickey MD Unavailable Unavailable Phoebe Hickey MD Unavailable Unavailable Phoebe Hickey MD Unavailable Unavailable Phoebe Hickey MD Unavailable Unavailable Phoebe Hickey MD Unavailable Unavailable Phoebe Hickey MD Unavailable Unavailable Phoebe Hickey MD Unavailable Unavailable Phoebe Hickey MD Unavailable Unavailable Phoebe Hickey MD Unavailable Unavailable Phoebe Hickey MD Unavailable Unavailable Phoebe Hickey MD Unavailable Unavailable Phoebe Hickey MD Unavailable Unavailable Phoebe Hickey MD Unavailable Unavailable Phoebe Hickey MD Unavailable Unavailable Phoebe Hickey MD Unavailable Unavailable Phoebe Hickey MD Unavailable Unavailable Phoebe Hickey MD Unavailable Unavailable Phoebe Hickey MD Unavailable Unavailable Phoebe Hickey MD Unavailable Unavailable Phoebe Hickey MD Unavailable Unavailable Phoebe Hickey MD Unavailable Unavailable Phoebe Hickey MD Unavailable Unavailable Phoebe Hickey MD Unavailable Unavailable Phoebe Hickey MD Unavailable Unavailable Phoebe Hickey MD Unavailable Unavailable Phoebe Hickey MD Unavailable Unavailable Phoebe Hickey MD Unavailable Unavailable Phoebe Hickey MD Unavailable Unavailable Phoebe Hickey MD Unavailable Unavailable Phoebe Hickey MD Unavailable Unavailable Phoebe Hickey MD Unavailable Unavailable Phoebe Hickey MD Unavailable Unavailable Phoebe Hickey MD Unavailable Unavailable Phoebe Hickey MD Unavailable Unavailable Phoebe Hickey MD Unavailable Unavailable Phoebe Hickey MD Unavailable Unavailable Phoebe Hickey MD Unavailable Unavailable Phoebe Hickey MD Unavailable Unavailable Phoebe Hickey MD Unavailable Unavailable Phoebe Hickey MD Unavailable Unavailable Phoebe Hickey MD Unavailable Unavailable Phoebe Hickey MD Unavailable Unavailable Phoebe Hickey MD Unavailable Unavailable Phoebe Hickey MD Unavailable Unavailable Phoebe Hickey MD Unavailable Unavailable Phoebe Hickey MD Unavailable Unavailable Phoebe Hickey MD Unavailable Unavailable Phoebe Hickey MD Unavailable Unavailable Phoebe Hickey MD Unavailable Unavailable Phoebe Hickey MD Unavailable Unavailable Phoebe Hickey MD Unavailable Unavailable Phoebe Hickey MD Unavailable Unavailable Phoebe Hickey MD Unavailable Unavailable Phoebe Hickey MD Unavailable Unavailable Phoebe Hickey MD Unavailable Unavailable Phoebe Hickey MD Unavailable Unavailable Phoebe Hickey MD Unavailable Unavailable Phoebe Hickey MD Unavailable Unavailable Phoebe Hickey MD Unavailable Unavailable Phoebe Hickey MD Unavailable Unavailable Phoebe Hickey MD Unavailable Unavailable Phoebe Hickey MD Unavailable Unavailable Phoebe Hickey MD Unavailable Unavailable Phoebe Hickey MD Unavailable Unavailable Phoebe Hickey MD Unavailable Unavailable Phoebe Hickey MD Unavailable Unavailable Phoebe Hickey MD Unavailable Unavailable Phoebe Hickey MD Unavailable Unavailable Phoebe Hickey MD Unavailable Unavailable Phoebe Hickey MD Unavailable Unavailable Phoebe Hickey MD Unavailable Unavailable Phoebe Hickey MD Unavailable Unavailable Phoebe Hickey MD Unavailable Unavailable Phoebe Hickey MD Unavailable Unavailable Phoebe Hickey MD Unavailable Unavailable Phoebe Hickey MD Unavailable Unavailable Phoebe Hickey MD Unavailable Unavailable Pohebe Hickey MD Unavailable Unavailable Phoebe Hickey MD Unavailable Unavailable Phoebe Hickey MD Unavailable Unavailable Phobee Hickey MD Unavailable Unavailable Green HEEL REDUCER HEEL REDUCER, Lenore Unavailable Unavailable Green HEEL REDUCER HEEL REDUCER, Lenore Unavailable Unavailable Green HEEL REDUCER HEEL REDUCER, Lenore Unavailable Unavailable Green HEEL REDUCER HEEL REDUCER, Lenore Unavailable Unavailable Green HEEL REDUCER HEEL REDUCER, Lenore Unavailable Unavailable LEXI ORELLANA MD Unavailable Unavailable LEXI ORELLANA MD Unavailable Unavailable LEXI ORELLANA MD Unavailable Unavailable LEXI ORELLANA MD Unavailable Unavailable LEXI ORELLANA MD Unavailable Unavailable LEXI ORELLANA MD Unavailable Unavailable LEXI ORELLANA MD Unavailable Unavailable Eduin Orellana MD Unavailable Unavailable Hernán Shetty DO Unavailable Unavailable Vallandigham, D Meghna CNM Unavailable Unavailabl e Vallandigham, D Meghna CNM Unavailable Unavailabl e Vallandigham, D Meghna CNM Unavailable Unavailabl e Vallandigham, D Meghna CNM Unavailable Unavailabl e Vallandigham, D Meghna CNM Unavailable Unavailabl e Vallandigham, D Meghna CNM Unavailable Unavailabl e Vallandigham, D Meghna CNM Unavailable Unavailabl e Vallandigham, D Meghna CNM Unavailable Unavailabl e Vallandigham, D Meghna CNM Unavailable Unavailabl e Vallandigham, D Meghna CNM Unavailable Unavailabl e Vallandigham, D Meghna CNM Unavailable Unavailabl e Vallandigham, D Meghna CNM Unavailable Unavailabl e Vallandigham, D Meghna CNM Unavailable Unavailabl e Vallandigham, D Meghna CNM Unavailable Unavailabl e Vallandigham, D Meghna CNM Unavailable Unavailabl e Vallandigham, D Meghna CNM Unavailable Unavailabl e Vallandigham, D Meghna CNM Unavailable Unavailabl e Vallandigham, D Meghna CNM Unavailable Unavailabl e Vallandigham, D Meghna CNM Unavailable Unavailabl e Vallandigham, D Meghna CNM Unavailable Unavailabl e Vallandigham, D Meghna CNM Unavailable Unavailabl e Vallandigham, D Meghna CNM Unavailable Unavailabl e Vallandigham, D Meghna CNM Unavailable Unavailabl e Vallandigham, D Meghna CNM Unavailable Unavailabl e Vallandigham, D Meghna CNM Unavailable Unavailabl e Vallandigham, D Meghna CNM Unavailable Unavailabl e Vallandigham, D Meghna CNM Unavailable Unavailabl e Garcia, Dee Chika MD Unavailable Unavailable Dee Garcia MD Unavailable Unavailable Dee Garcia MD Unavailable Unavailable Dee Garcia MD Unavailable Unavailable Dee Garcia MD Unavailable Unavailable Dee Garcia MD Unavailable Unavailable Dee Garcia MD Unavailable Unavailable Dee Garcia MD Unavailable Unavailable Dee Garcia MD Unavailable Unavailable Dee Garcia MD Unavailable Unavailable Chevy WANG MD Unavailable Unavailable Chevy WANG MD Unavailable Unavailable Chevy WANG MD Unavailable Unavailable Chevy WANG MD Unavailable Unavailable Chevy WANG MD Unavailable Unavailable Chevy WANG MD Unavailable Unavailable Chevy WANG MD Unavailable Unavailable Chevy WANG MD Unavailable Unavailable Chevy WANG MD Unavailable Unavailable Chevy WANG MD Unavailable Unavailable Chevy WANG MD Unavailable Unavailable Chevy WANG MD Unavailable Unavailable Chevy WANG MD Unavailable Unavailable Chevy WANG MD Unavailable Unavailable Chevy WANG MD Unavailable Unavailable Chevy WANG MD Unavailable Unavailable Chevy WANG MD Unavailable Unavailable Chevy WANG MD Unavailable Unavailable Chevy WANG MD Unavailable Unavailable Chevy WANG MD Unavailable Unavailable Chevy WANG MD Unavailable Unavailable Chevy WANG MD Unavailable Unavailable Chevy WANG MD Unavailable Unavailable Chevy WANG MD Unavailable Unavailable Chevy WANG MD Unavailable Unavailable Chevy WANG MD Unavailable Unavailable Chevy WANG MD Unavailable Unavailable Chevy WANG MD Unavailable Unavailable Chevy WANG MD Unavailable Unavailable Chevy WANG MD Unavailable Unavailable Chevy WANG MD Unavailable Unavailable Chevy WANG MD Unavailable Unavailable Chevy WANG MD Unavailable Unavailable Chevy WANG MD Unavailable Unavailable Chevy WANG MD Unavailable Unavailable Chevy WANG MD Unavailable Unavailable Chevy WANG MD Unavailable Unavailable Chevy WANG MD Unavailable Unavailable Chevy WANG MD Unavailable Unavailable Chevy WANG MD Unavailable Unavailable Chevy WANG MD Unavailable Unavailable Chevy WANG MD Unavailable Unavailable Chevy WANG MD Unavailable Unavailable Chevy WANG MD Unavailable Unavailable Chevy WANG MD Unavailable Unavailable Chevy WANG MD Unavailable Unavailable Chevy WANG MD Unavailable Unavailable Chevy WANG MD Unavailable Unavailable Chevy WANG MD Unavailable Unavailable Chevy WANG MD Unavailable Unavailable Chevy WANG MD Unavailable Unavailable Chevy WANG MD Unavailable Unavailable Chevy WANG MD Unavailable Unavailable Hernán Shetty DO Unavailable Unavailable Re-disclosure Warning The records that you are about to access may contain information from federally-assisted alcohol or drug abuse programs. If such information is present, then the following federally mandated warning applies: This information has been disclosed to you from records protected by federal confidentiality rules (42 CFR part 2). The federal rules prohibit you from making any further disclosure of this information unless further disclosure is expressly permitted by the written consent of the person to whom it pertains or as otherwise permitted by 42 CFR part 2. A general authorization for the release of medical or other information is NOT sufficient for this purpose. The Federal rules restrict any use of the information to criminally investigate or prosecute any alcohol or drug abuse patient.The records that you are about to access may contain highly sensitive health information, the redisclosure of which is protected by Article 27-F of the [facility] Public Health law. If you continue you may have access to information: Regarding HIV / AIDS; Provided by facilities licensed or operated by the [facility] Office of Mental Health; or Provided by the [facility] Office for People With Developmental Disabilities. If such information is present, then the following [facility] mandated warning applies: This information has been disclosed to you from confidential records which are protected by state law. State law prohibits you from making any further disclosure of this information without the specific written consent of the person to whom it pertains, or as otherwise permitted by law. Any unauthorized further disclosure in violation of state law may result in a fine or fdc sentence or both. A general authorization for the release of medical or other information is NOT sufficient authorization for further disc losure. Allergies and Adverse Reactions Type Description Substance Reaction Status Data Source(s ) Propensity to adverse reactions shellfish derived shellfish derived Active [facility] ([facility]) Drug allergy SULFA DRUGS SULFA DRUGS [facility] try Family Health Family History Family Member Name Family Member Gender Family Member Status Date o f Status Description Data Source(s) Unknown Female Diagnosis 07/24/2020 12:00:00 AM EDT [facility] ([facility]) Encounters Encounter Providers Location Date Indications Data Source(s ) [place] [address] [facility] [place] [address] 11/09/2020 12:00:00 AM EDT eCW1 ([facility]) Unknown [address] [facility] [place] [address] 10/20/2020 12:00:00 AM EDT eCW1 ([facility]) Out[place] [address] [facility] [place] [address] 10/12/2020 12:00:00 AM EDT eCW1 ([facility]) [facility] 08[facility] 09:00:00 AM EDT - 09/12/2020 09:00:00 AM EDT Encounter for prescription of emergency contraception [facility] ([facility]) Encounter for prescription of emergency contraception HCS Without Test Attender: Lenore Osuna HEEL REDUCER HEEL REDUCER JUDE [place] 07/24/2020 02:00:00 PM EDT - 07/24/2020 02:00:00 PM EDT Other sex counselingEncounter for removal of intrauterine contraceptive deviceEncounter for oth general cnsl and advice on contraceptionEncounter for test, result negativeHuman immunodeficiency virus [HIV] counseling [facility] Other sex counseling Encounter for removal of intrauterine co ntraceptive device Encounter for oth general cnsl and advic e on contraception Encounter for test, result neg ative Human immunodeficiency virus [HIV] couns jose rafael Unlisted evaluation and management service 05/03/2020 10:16:00 PM EDT - 05/18/2020 09:00:00 PM EDT [facility] ([facility]) Outpatient Attender: Ayan Hickey MD FP 12/14/2019 03:45:01 PM EDT [facility] Outpatient Attender: Ayan Hickey MD FP 12/05/2019 09:30:06 AM EDT [facility] Outpatient Attender: Ayan Hickey MD FP 12/05/2019 09:30:03 AM EDT [facility] Outpatient Attender: Ayan Hickey MD FP 12/04/2019 12:00:15 AM EDT [facility] Outpatient Attender: Ayan Hickey MD FP 12/03/2019 03:27:00 PM EDT [facility] Outpatient Attender: Ayan Hickey MD FP 12/03/2019 02:08:00 PM EDT [facility] Outpatient Attender: Ayan Hickey MD FP 11/26/2019 12:14:00 PM EDT [facility] Outpatient Attender: Ayan Hickey MD FP 11/08/2019 01:31:01 PM EDT [facility] Outpatient Attender: Ayan Hickey MD FP 11/05/2019 02:25:02 PM EDT [facility] Outpatient Attender: Ayan Hickey MD FP 11/05/2019 10:00:06 AM EDT [facility] Outpatient Attender: Ayan Hickey MD FP 11/05/2019 09:59:00 AM EDT [facility] Outpatient Attender: Ayan Hickey MD FP 10/22/2019 08:46:01 AM EDT [facility] Outpatient Attender: Ayan Hickey MD FP 10/21/2019 12:50:01 PM EDT [facility] Outpatient Attender: Ayan Hickey MD FP 10/21/2019 12:49:00 PM EDT [facility] Outpatient Attender: Ayan Hickey MD FP 10/21/2019 12:48:00 PM EDT [facility] Outpatient Attender: Ayan Hickey MD FP 10/21/2019 12:47:01 PM EDT [facility] Outpatient Attender: Ayan Hickey MD FP 10/21/2019 12:25:00 PM EDT [facility] Outpatient Attender: Ayan Hickey MD FP 10/21/2019 11:41:01 AM EDT [facility] Outpatient Attender: Ayan Hickey MD FP 10/21/2019 11:40:01 AM EDT [facility] Outpatient Attender: Ayan Hickey MD FP 10/21/2019 11:38:00 AM EDT [facility] Outpatient Attender: Ayan Hickey MD FP 10/21/2019 10:38:02 AM EDT [facility] Outpatient Attender: Ayan Hickey MD FP 10/20/2019 09:47:01 AM EDT [facility] Inpatient Attender: Lexi Franklin nder: LEXI ORELLANA MDAdmitter: LEXI ORELLANA MD [facility] 09/23/2019 09:57:00 AM EDT - 10/06/2019 08:00:00 AM EDT PSYCHOACTIVE SUBSTANCE DEPENDENCE [facility] PSYCHOACTIVE SUBSTANCE DEPENDENCE Patient discharged. Inpatient Attender: Bibi Franklin nder: Chika Garcia MDAdmitter: Chika Garcia MD [facility] 09/20/2019 06:55:00 PM EDT - 09/23/2019 09:50:00 AM EDT ACUTE CHOLECYSTITIS [facility] ACUTE CHOLECYSTITIS Patient discharged. Emergency Attender: Hernán Shetty DOAttender: Hernán kuhn DO [facility] 09/08/2019 11:23:00 PM EDT - 09/09/2019 01:32:00 AM EDT COLD SYMPTOMS [facility] COLD SYMPTOMS Patient discharged. Inpatient Attender: Lexi Franklin nder: LEXI ORELLANA MDAdmitter: LEXI ORELLANA MD [facility] 09/08/2019 09:19:00 PM EDT - 09/20/2019 10:06:00 PM EDT PSYCHOACTIVE SUBSTANCE DEPENDENCE [facility] PSYCHOACTIVE SUBSTANCE DEPENDENCE Patient discharged. Outpatient Attender: Meghna Malloy CNM 09/04/2015 05:24:00 PM [facility] Outpatient Attender: MARK ANTHONY HARRELL CNMReferrer: CLAIRE WANG MD 06/21/2015 10:00:00 AM [facility] Medications Medication Brand Name Start Date Product Form Dose Route Admi nistrative Instructions Pharmacy Instructions Status Indications Reaction Description Data Source(s) 5-325 mg 11/22/2020 12:00:00 AM EDT tablet 20 TAKE ONE TO TWO TABLETS BY MOUTH EVERY 6 HOURS NEEDED POSTOPERATIVE PAIN MAXIMUM DAILY DOSE = 6 TAKE ONE TO TWO TABLETS BY MOUTH EVERY 6 HOURS NEEDED POSTOPERATIVE PAIN MAXIMUM DAILY DOSE = 6 SOLD: 11/23/2020 Augusto garzon Mavyret 100-40 MG Mavyret 100-40 MG 10/20/2020 12:00:00 AM EDT 3.0 {tablets} active Mavyret 100-40 MG eC W1 ([facility]) Mavyret 100-40 MG Mavyret 100-40 MG 10/20/2020 12:00:00 AM EDT 3.0 {tablets} active Mavyret 100-40 MG eC W1 ([facility]) Mavyret 100-40 MG Mavyret 100-40 MG 10/20/2020 12:00:00 AM EDT 3.0 {tablets} active Mavyret 100-40 MG eC W1 ([facility]) Levonorgestrel 1.5 MG Oral Tablet [EContra] Econtra On e-Step 1.5 mg tablet Econtra One-Step 1.5 mg tablet 09/12/2020 12:00:00 AM EDT completed levonorgestrel 1.5 MG Oral Tablet [EContra] [facility] ([facility] Meclizine Hydrochloride 25 MG Oral Tablet MECLIZINE HCL 06/01/2020 12:00:00 AM EDT tablet 15 TAKE ONE TABLET BY MOUTH THR EE TIMES A DAY NEEDED TAKE ONE TABLET BY MOUTH THREE TIMES A DAY NEEDED SOLD: 06/08/2020 [facility] 36 mg 06/01/2020 12:00:00 AM EDT tablet extended release 24hr 15 TAKE ONE TABLET BY MOUTH EVERY MORNING MAXIMUM DAILY DOSE = 1 TABLET TAKE ONE TABLET BY MOUTH EVERY MORNING MAXIMUM DAILY DOSE = 1 TABLET SOLD: 06/08/2020 [facility] Insurance Providers Payer name Policy type / Coverage type Policy ID Covered green party ID Covered green party's relationship to rodriguez Policy Rodriguez Plan Information [employer] [id number] CHILD [id number] Medicaid Medigap Part B [id number] Self UMR [facility] P [id number] S [id number] Medicaid P [id number] S [id number] [facility] [id number] SP [id number] [id number] SP [id number] [employer] [id number] [id number] MEDICAID [id number] S [id number] [facility] [id number] CHILD [id number] [place] [id number] SP [id number] UMR [id number] Unemployed [id number] Medicaid S UNAVAILABLE S UNAVAILA BLE UMR [facility] P [id number] S [id number] Self Pay P UNAVAILABLE S UNAVAILA BLE UMR [id number] CHILD [id number] MEDICAID [id number] S [id number] [facility] MEDICAID [id number] S [id number] MEDICAID [id number] SP [id number] MEDICAID [id number] S [id number] UMR O [id number] S [id number] UMR [facility] [id number] FA2 [id number] Umr/Uhc/[employer] Health Maintenance Organization (HMO) [id number] Family Dependent [id number] Umr/Uhc[employer] Maintenance Organization (HMO) [id number] Family Dependent [id number] Umr/Uhc[employer] Health Maintenance Organization (HMO) [id number] Family Dependent [id number] UMR O [id number] C [id number] UMR [facility] [id number] SP [id number] [place] Medigap Part B [id number] Self [id number] [employer] (HMO) [id number] Family Dependent [id number] [employer] [id number] FA2 [id number] [employer] [id number] Family Dependent [id number] [employer] [id number] [place] Medigap Part B [id number] Self [employer] (HMO) [id number] Family Dependent [employer] Commercial [id number] Self [employer] PPO O [id number] C [id number] SELF PAY UNAVAILABLE UNAVAILA BLE [facility] [id number] SP [id number] SELF PAY SP UNAVAILABLE UNAVAILA BLE [facility] [id number] SP [id number] HMO BLUE [id number] SP [id number] [facility] [id number] SP [id number] [place] [id number] SP [id number] Q [facility] [id number] SP [id number] [facility] [id number] SP [id number] R [facility] [id number] [id number] Problems, Conditions, and Diagnoses Code Display Name Description Problem Type Effective Dates Data Source(s) 314.01 ADHD ADHD 11/05/2019 09:58:11 AM ED T [facility] [id number] Bipolar disorder, unspecified Bipolar disorder, unspec ified 11/05/2019 09:58:11 AM EDT [facility] 311 Depression Depression 11/05/2019 09:58:11 AM ED T [facility] 300.00 Anxiety Anxiety 11/05/2019 09:58:11 AM ED T [facility] 780.52 Insomnia Insomnia 11/05/2019 09:58:11 AM ED T [facility] B19.20 Unspecified viral hepatitis C without hepatic coma Hep atitis C 11/05/2019 09:58:11 AM EDT [facility] F17.200 Nicotine dependence, unspecified, uncomplicated Nicoti ne dependence 11/05/2019 09:58:11 AM EDT [facility] R94.6 Abnormal results of thyroid function florinda dies Abnormal thyroid function study 11/05/2019 09:58:11 AM EDT [facility] 285.9 Anemia Anemia 11/05/2019 09:58:11 AM ED T [facility] F19.10 Other psychoactive substance abuse, uncomplicated Poly substance abuse 11/05/2019 09:58:11 AM EDT [facility] Surgeries/Procedures Procedure Description Date Indications Data Source(s) E Contra One Step 09/12/2020 12:00:00 AM EDT - 021 12:00:00 AM EDT [facility]) CVR Database Tester.Svc. STI / H 07/24/2020 12:00:00 AM EDT - 07/24/2020 12:00:00 AM EDT [facility] ([facility]) CVR Database Tester.Svc. Other 07/24/2020 12:00:00 AM EDT - 2020 12:00:00 AM EDT [facility] ([facility]) CVR Database Tester.Svc. Contraceptive 07/24/2020 12 :00:00 AM EDT - 07/24/2020 12:00:00 AM EDT [facility] ([facility]) CVR Med.Svc. Height/Weight 07/24/2020 12 :00:00 AM EDT - 07/24/2020 12:00:00 AM EDT [facility] ([facility]) CVR Blood Pressure 07/24/2020 12:00:00 AM EDT - 2020 12:00:00 AM EDT [facility] ([facility]) HCS Without Test 07/24/2020 12:00:00 AM EDT - 07/25/19 21 12:00:00 AM EDT [facility] ([facility]) REMOVE INTRAUTERINE DEVICE 07/24/2020 12 :00:00 AM EDT - 07/24/2020 12:00:00 AM EDT [facility] ([facility]) URINE TEST 07/24/2020 12:00:00 AM EDT - 07/24/2020 12:00:00 AM EDT [facility] ([facility]) Results ID Date Data Source HEPATITIS C QUANT BY PCR 10/13/2020 12:00:00 AM EDT eCW1 ([facility]) Name Value Range Interpretation Code Description Data Gayathri rce(s) Supporting Document(s) 460 . HEPATITIS C QUANTITATION eCW1 ([facility]) HEPATITIS C QUANTITATION 2.663 . Hepatitis C log10 eCW1 ([facility]) Hepatitis C log10 ID Date Data Source HEPATITIS C GENOTYPE 10/13/2020 12:00:00 AM EDT eCW1 ([facility]) Name Value Range Interpretation Code Description Data Gayathri rce(s) Supporting Document(s) . COMMENT FOR HEPC GENOTYPE eCW1 ([facility]) TNP . HEPATITIS C VIRUS GENOTYPE eCW 1 ([facility]) ID Date Data Source HEPATITIS C FIBROSURE [id number] 10/13/2020 12:00:00 AM EDT eC W1 ([facility]) Name Value Range Interpretation Code Description Data Gayathri rce(s) Supporting Document(s) . FIBROSIS STAGE eCW1 ([facility]) 0.03 0.00-0.17 NECROINFLAM SCORE eCW1 ([facility]) 0.04 0.00-0.21 FIBROSIS SCORE eCW1 ([facility]) 161 110-276 ALPHA 2-MACROGLOBULIN eCW1 ([facility]) 121 33-278 HAPTOGLOBIN eCW1 ([facility]) A0-No activity . NECROINFLAMM GRADE eCW1 ( [facility]) 0.4 0.0-1.2 TOTAL BILIRUBIN eCW1 ([facility]) 139 116-209 APOLIPOPROTEIN A-1 eCW1 ([facility]) 11 0-60 GGT eCW1 ([facility]) . INTERPRETATION eCW1 ([facility]) 15 0-40 ALT eCW1 ([facility]) . FIBROSIS SCORING eCW1 ([facility]) . NECROINFLAM SCORING eCW1 ([facility]) . LIMITATIONS eCW1 ([facility]) . COMMENT : eCW1 ([facility]) ID Date Data Source [id number] 10/13/2020 12:00:00 AM EDT eCW1 ([facility]) Name Value Range Interpretation Code Description Data Gayathri rce(s) Supporting Document(s) HIV 1&2 ANTIBODY SCREEN eCW1 ( [facility]) ID Date Data Source Comprehensive Metabolic Profile (CMP) 10/13/2020 12:00:00 AM EDT eCW1 ([facility]) Name Value Range Interpretation Code Description Data Gayathri rce(s) Supporting Document(s) 72 70-100 GLUCOSE, FASTING eCW1 ([facility]) 15 7-18 BLOOD UREA NITROGEN eCW1 ([facility]) 0.78 0.55-1.30 CREATININE FOR GFR eCW1 ([facility]) > 60.0 >60 GLOMERULAR FILTRATION RATE eCW 1 ([facility]) 4.7 3.5-5.1 POTASSIUM SERUM eCW1 ([facility]) 141 136-145 SODIUM LEVEL eCW1 ([facility]) 109 98-107 CHLORIDE LEVEL eCW1 ([facility]) 29 21-32 CARBON DIOXIDE LEVEL eCW1 ([facility]) 6 7-37 AST/SGOT eCW1 ([facility]) 22 12-78 ALT/SGPT eCW1 ([facility]) 65 45-117 ALKALINE PHOSPHATASE eCW1 ([facility]) 9.3 8.5-10.1 CALCIUM LEVEL eCW1 ([facility]) 0.6 0.2-1.0 BILIRUBIN,TOTAL eCW1 ([facility]) 7.0 6.4-8.2 TOTAL PROTEIN eCW1 ([facility]) 4.0 3.2-5.2 ALBUMIN eCW1 ([facility]) 1.3 1.2-2.2 ALBUMIN/GLOBULIN RATIO eCW1 ([facility]) ID Date Data Source CBC with Differential 10/13/2020 12:00:00 AM EDT eCW1 ([facility]) Name Value Range Interpretation Code Description Data Gayathri rce(s) Supporting Document(s) 4.74 4.00-5.40 RED BLOOD COUNT eCW1 ([facility]) 14.2 12.0-15.5 HEMOGLOBIN eCW1 ([facility]) 4.9 4.0-10.0 WHITE BLOOD COUNT eCW1 ([facility]) 91.4 80.0-96.0 MEAN CORPUSCULAR VOLUME e CW1 ([facility]) 43.3 36.0-47.0 HEMATOCRIT eCW1 ([facility]) 30.0 27.0-33.0 MEAN CORPUSCULAR HEMOGLOB IN eCW1 ([facility]) 32.8 32.0-36.5 MEAN CORPUSCULAR HGB CONC eCW1 ([facility]) 12.3 11.5-14.5 RED CELL DISTRIBUTION WID TH eCW1 ([facility]) 173 150-450 PLATELET COUNT, AUTOMATED eCW1 ([facility]) 55.0 36.0-66.0 NEUTROPHILS % eCW1 ([facility]) 34.8 24.0-44.0 LYMPH % eCW1 ([facility]) 7.6 2.0-8.0 MONO % eCW1 ([facility]) 1.6 0.0-3.0 EOS % eCW1 ([facility]) 0.8 0.0-1.0 BASO % eCW1 ([facility]) 2.7 1.5-8.5 NEUTROPHILS # eCW1 ([facility]) 0.4 0.0-0.8 MONO # eCW1 ([facility]) 1.7 1.5-5.0 LYMPH # eCW1 ([facility]) 0.1 0.0-0.5 EOS # eCW1 ([facility]) 0.0 0.0-0.2 BASO # eCW1 ([facility]) ID Date Data Source [id number] 07/24/2020 02:11:55 PM EDT [facility]) Name Value Range Interpretation Code Description Data Gayathri rce(s) Supporting Document(s) NegativeLot: [id number]: 12/17/2021 High Sensitivity Urine Test [facility] ([facility]) ID Date Data Source [id number] 12/03/2019 02:55:00 PM EDT [facility] Name Value Range Interpretation Code Description Data Gayathri rce(s) Supporting Document(s) HCT 38.6 % 36.0-47.0 N [facility] HGB 12.2 g/dL 12.0-15.5 N [facility] MCH 31.6 G/DL pg 32.0-36.[address] [facility] evans [facility] MCHC 28.6 PG % 27.0-33.0 N [facility] PLATELETS 189 10 10*3/mm3 150-450 N [facility] RBC 4.26 10 10*6/mm3 4.00-5.40 N [facility] RDW 12.0 % 11.5-14.5 N [facility] WBC TOTAL 4.9 4.0-10.0 N [facility] Family [facility] ID Date Data Source [id number] 12/03/2019 02:55:00 PM EDT [facility] Name Value Range Interpretation Code Description Data Gayathri rce(s) Supporting Document(s) HEP C AB > 11.0 <0.8 H [facility] BG FASTING 65 mg/dL 70-100 L [facility] y Health ID Date Data Source [id number] 12/03/2019 02:09:01 PM EDT [facility] Measurements & CalculationsHeight: 61 inches (5 ft. 1 in.) 154.94 cm Weight: 138.2 pounds 62.82 kg Body Mass Index (BMI): 26.21BMI Interpretation: OverweightBody Surface Area (BSA): 1.62Weight Management Education Done (Nutrition/Physical Activity)Vital SignsTemperature: 98.5FPulse Rate: 78 beats/minuteRespiratory Rate: 16 respirations/minuteBlood Pressure: 105/58 O2 Saturation: 94% Vital Signs performed by: Bhavna Solano MA, December 03, 2019 2:24 PMVital Signs performed by: Bhavna Solano MA, December 03, 2019 2:24 PMLabs In-House Blood TestsDate/Time Collected: December 03, 2019 2:55 PMTest Result Reference Range Normal ValueComments: Blood drawn in office from left AC, tolerated wellKlarissa Hagen MA, December 03, 2019 2:59 PMInitial Intake Information From: patientRoom #: 13Infectious Disease / Travel ScreeningRecent travel for you or any close contacts? NoHave you had any close contact with anyone diagnosed with or under investigation for COVID-19 (coronavirus)? NoFever? NoRespiratory symptoms: cough, cold, congestion, shortness of breath, difficulty breathing? NoLoss of smell? NoLoss of taste? NoSmoking, Tobacco, Vaping or Smoke Exposure StatusSmoke Status: current every day smokerTobacco Use: YesAdv to Quit: YesDo you vape? NoPassive Smoke Exposure: NoMenstrual HistoryLast Menstrual Period (LMP): 12/01/2019LMP History: ApproximateAny possibility of ? NoComments: [facility] HistorySince your last office visit...Have you been admitted to the hospital? NoHave you been to an emergency room (ER) or urgent care clinic? Yes - [facility] - COVID test - negativeEmergency room (ER) or urgent care date reported today: 11/25/2019Have you seen another healthcare provider? NoHave you seen a dentist? NoIntake performed by: Bhavna Solano MA, December 03, 2019 2:13 PMRate Your HealthIn general, would you say your health is? FairPain AssessmentAre you currently having any pain which... You would like your provider to address? No Affects your activity level? NoDepression Screening - PHQ-2Over the last two weeks, have you... Had little interest or pleasure in doing things? Several days Been feeling down, depressed, or hopeless? Nearly every day PHQ-2 Score: 4Anxiety Screening - TASIA-2Over the last two weeks, have you been... Feeling nervous, anxious, or on edge? Nearly every day Unable to stop or control worrying? Nearly every day TASIA-2 Score: 6Food InsecurityWithin the past year...Did you worry whether your food would run out before you got money to buy more? Never trueWas there a time when the food you bought didn't last and you didn't have money to get more? Never trueGeneralized Anxiety Disorder 7-Item Screening (TASIA-7)Answer Guide:0 = Not at all1 = Several days2 = Over half the days3 = Nearly every dayOver the last 2 weeks, how often have you been bothered by the following problems?Feeling nervous, anxious, or on edge: 3Not being able to stop or control worryinWorrying too much about different things: 3Trouble relaxinBeing so restless that it's hard to sit still: 2Becoming easily annoyed or irritable: 3Feeling afraid as if something awful might happen: 0Answer Guide:0 = Not difficult at all1 = Somewhat difficult2 = Very difficult3 = Extremely difficultHow difficult have these made it for you to do your work, take care of things at home, or get along with other people? 1GAD-7 Screening Results TASIA-2 Score: 6GAD-7 Score: 17Functional Impairment: Somewhat difficultRecommendation: Severe anxietyPHQ-9 1. Over the last 2 weeks, patient reports the following frequency of symptoms: a. Little interest or pleasure in doing things -Several days b. Feeling down, depressed, or hopeless -Nearly every day c. Trouble falling asleep, staying asleep, or sleeping too much -Not at all d. Feeling tired or having little energy -Nearly every day e. Poor appetite or overeating -Not at all f. Feeling bad about yourself, feeling that you are a failure, or feeling that you have let yourself or your family down -Not at all g. Trouble concentrating on things such as reading the newspaper or watching television -Nearly every day h. Moving or speaking so slowly that other people could have noticed. Or being so fidgety or restless that you have been moving around a lot more than usual - Nearly every day i. Thinking that you would be better off or that you want to hurt yourself in some way -Not at all2. If you checked off any problems, how difficult have these problems made it for you to do your work, take care of things at home, or get along with other people? -Somewhat DifficultToday's PHQ-9 Results Score: 13 Severity: Moderate Diagnosis Recommendation: Other Depression Functional Impairment: Somewhat DifficultScreening, Brief Intervention, & Referral to Treatment (SBIRT)Pre-Screening Questions How many times have you have 4 or more drinks in a day? 0How many times have you used an illegal drug or used a prescription medication for a non-medical reason? 320Performed by: Bhavna Solano MA, December 03, 2019 2:17 PMPatient History Medical History:ADHDPolysubstance AbuseHep CAnemiaBipolarAnxie tyDepressionInsomniaNicotine DependenceADHDSurgical History:Laparoscopic cholecystectomy (2019)Family History:Social/Personal History: Advised to Quit/Tobacco Education: YesChief Complaintfollow-up visit hospital discharge room 13History of Present Illness (HPI)24 YO female here for hospital discharge from rehab. Pt states she needs refill of trazadone and needs ADHD meds or something for concentrating. Pt also states she has problems with Bipolar disorder. Pt wants a flu vaccine. Has missed three appointments here including one reschedule due to lack of records.Seeing [facility] for the past 2 months. Counselling only. She has considered going to their [facility] as well for Psychiatry but she does not have the time to go to their walk in hours on the days that they are open. Long history of ADHD and bipolar as well as anxiety and depression. Finding the medications she is on helpful but she would like to be on a medication to help her focus.Has Hep C and has not yet recieved treatment. It has been a while since her last blood tests.HPI performed by: Ayan Hickey MD, December 03, 2019 2:30 PMTransitions of Care InboundProblem ReviewProblem List was reviewed and/or updated during this visit.Medication Reconciliation & ReviewMedication List was reviewed and/or updated during this visit, including review of any [id number] medications, herbal therapies, and/or supplements.Allergy ReviewAllergy List was reviewed and/or updated during this visit.Adult Preventive CareProvider Calculated and Reviewed all Clinical Protocols for patient today. Screening Tobacco Screening: Smoking Status: current every day smoker (12/03/2019) Tobacco Use: Currently (12/03/2019) Advised to Quit: Yes (12/03/2019)Labs/Meds/Other Counseling- Nutrition and Physical Activity:BMI Interpretation: Overweight (12/03/2019) Counseling: Done (12/03/2019) Physical Activity: Done (12/03/2019)Review of Systems General: Denies chills, dizziness, fatigue, fever. Cardiovascular: Denies chest pain. Respiratory: Denies shortness of breath. Gastrointestinal: Denies diarrhea, constipation, abdominal pain, jaundice. Genitourinary: Denies pain with urination, urinary frequency, urinary urgency. Physical ExamGeneral Appearance: well nourished, well hydrated, no acute distressRespiratory, Auscultation: clear to auscultation bilaterally; no rales, rhonchi, or wheezesRespiratory, Effort: no intercostal retractions or use of accessory musclesCardiovascular, Auscultation: S1, S2 audible; no murmur, rub, or gallop; RRRGait & Station: normalSkin, Inspection: no rashes, lesions, or ulceration sOrientation: oriented to time, place, and personMood & Affect: no depression, anxiety, or agitationJudgment & Insight: intactCare Management Plan Transitions of CareInboundRate Your HealthIn general, would you say your health is? FairAssessment & Plan Problems:Assessed:Bipolar disorder, unspecified (ICD10- F31.9) Assessment: Instructions: Refer to Psychiatry here.Continue current medications for now.Hepatitis C (ICD-070.70) (BHW23-P97.20) Assessment: Instructions: Check labs today and consider referral based on results.Recheck here one month, sooner as needed.Patient Instructions/Care Plan: Bipolar disorder- unspecified: Refer to Psychiatry here.Continue current medications for now.Hepatitis C: Check labs today and consider referral based on results.Recheck here one month, sooner as needed. Plan developed in collaboration with patient and/or familyMedications:[facility] MELATONIN 10 MG ORAL CAPSULEESCITALOPRAM OXALATE 10 MG ORAL TABLETHYDROXYZINE HCL 25 MG ORAL TABLETON DANSETRON HCL 4 MG ORAL TABLETDAILY VALUE MULTIVITAMIN ORAL TABLETMAGNESIUM 200 MG ORAL TABLETFLUTICASONE PROPIONATE 50 MCG/ACT NASAL SUSPENSIONTRAZODONE HCL 50 MG ORAL TABLETMedication Changes:Added: [facility] MELATONIN 10 MG ORAL CAPSULE-once at nightRefilled:ESCITALOPRAM OXALATE 10 MG ORAL TABLET-1 tablet once daily Qty: 30[Tablet] Refills: 1 Method: ElectronicHYDROXYZINE HCL 25 MG ORAL TABLET-1 tablet every 4 hours as needed for panic/anxiety Qty: 30[Tablet] Refills: 1 Method: ElectronicTRAZODONE HCL 50 MG ORAL TABLET-1 tablet nightly for sleep Qty: 30[Tablet] Refills: 1 Method: ElectronicRemoved:[facility] NICOTINE GUMAllergies:* SULFA DRUGS (Critical)Orders:Adult - Ofc Vst, EST, Level III [CPT-85681] Telepsychiatry Consult [CPT-97980] Hepatitis C Viral Load [CPT- 95812] HCV Genotype [CPT-99668] HCV Antibody To RNA Reflex Test [CPT-76925] COMP METABOLIC PANEL [CPT-22847] CBC W/DIFF [CPT-12531] 24641 - Venipuncture [CPT- 88877] Medications:TRAZODONE HCL 50 MG ORAL TABLET (TRAZODONE HCL) 1 tablet nightly for sleep #30[Tablet] x 1 Route:ORAL Entered and Authorized by: Ayan Hickey MD Method used: Electronically to [facility] [address] (retail) [place] [address] Note to Pharmacy: Route: ORAL; RxID: [id number] HCL 25 MG ORAL TABLET (HYDROXYZINE HCL) 1 tablet every 4 hours as needed for panic/anxiety #30[Tablet] x 1 Route:ORAL Entered and Authorized by: Ayan Hickey MD Method used: Electronically to [facility] [address] (retail) [place] [address] Note to Pharmacy: Route: ORAL; RxID: [id number] OXALATE 10 MG ORAL TABLET (ESCITALOPRAM OXALATE) 1 tablet once daily #30[Tablet] x 1 Route:ORAL Entered and Authorized by: Ayan Hickey MD Method used: Electronically to [facility] [address] (retail) [place] [address] Fax: Note to Pharmacy: Route: ORAL; RxID: [id number] signed by Ayan Hickey MD on 12/03/2019 at 3:26 PM Name Value Range Interpretation Code Description Data Gayathri rce(s) Supporting Document(s) ID Date Data Source [id number] 11/24/2019 02:30:00 PM EDT [facility] Name Value Range Interpretation Code Description Data Gayathri rce(s) Supporting Document(s) SARS coronavirus 2 RNA [facility] This lab was ordered by [facility] and rep orted by [facility]. ID Date Data Source [id number] 11/05/2019 09:58:12 AM EDT [facility] Sociodemographic Characteristics Race: White Ethnicity: Not or Preferred Language: EnglishPatient History Medical History:ADHDPolysubstance AbuseHep CAnemiaBipolarAnxietyD epressionInsomniaNicotine DependenceSurgical History:Laparoscopic cholecystectomy (2019)Social/Personal History: Assessment & Plan _ Name Value Range Interpretation Code Description Data Gayathri rce(s) Supporting Document(s) Procedure Social History Code Duration Value Status Description Data Source(s ) Smoking 10/12/2020 12:00:00 AM EDT Current Smoker completed Curre nt Smoker eCW1 ([facility]) Smoking 10/12/2020 12:00:00 AM EDT Current Smoker completed Curre nt Smoker eCW1 ([facility]) Smoking 10/12/2020 12:00:00 AM EDT Current Smoker completed Curre nt Smoker eCW1 ([facility]) Smoking 09/12/2020 12:00:00 AM EDT Heavy tobacco smoker comple aleisha Heavy tobacco smoker [facility] ([facility]) 07/24/2020 12:00:00 AM EDT Moderate cigarette sm oker (10-19 cigs/day) completed Moderate cigarette smoker (10-19 cigs/day) [facility] Smoking 05/03/2020 12:00:00 PM EDT Tobacco smoki ng consumption unknown (finding) completed Unknown If Ever Smoked [facility] ([facility]) Vital Signs ID Date Data Source UNK Name Value Range Interpretation Code Description Data Source(s) Body weight 151 [lb_av] 151 [lb_av] eCW1 ([facility]) Body weight 68.49 kg 68.49 kg [facility] ([facility]) Body height [in_i] W1 ([facility]) Body mass index (BMI) [Ratio] 26.12 kg/m2 26.12 kg/m2 W1 ([facility]) Heart rate 115 /min 115 /min W1 ([facility]) Respiratory rate 18 /min 18 /min W1 ([facility]) Body temperature 97 [degF] 97 [degF] W1 ([facility]) Systolic blood pressure 112 mm[Hg] 112 mm[Hg] e CW1 ([facility]) Diastolic blood pressure 72 mm[Hg] 72 mm[Hg] eCW1 ([facility]) Body height 154.94 cm 154.94 cm [facility] Body weight 69.309 kg 69.309 kg [facility] Systolic blood pressure 118 mm[Hg] 118 mm[Hg] N [facility] ([facility]) Diastolic blood pressure 78 mm[Hg] 78 mm[Hg] [facility] ([facility]) Body mass index (BMI) [Ratio] 28.87 kg/m2 Overweight 28.87 kg/m2 [facility] ([facility]) ID Date Data Source [id number] 11/22/2019 10:59:00 AM EDT [facility] Name Value Range Interpretation Code Description Data Source(s) Weight Measurement Method 1 1 [facility] Weight (Calculated Kilograms) 61.23 61.23 [facility] Weight 2095 2095 [facility] Temperature Source 7 7 [facility] Temperature 98.6 98.6 [facility] Respiratory Effort 1 1 [facility] Respiratory Rate 20 20 [facility] Pulse Assessment Method 4 4 [facility] Pulse Rate 92 92 [facility] Height (Calculated Centimeters) 154.94 154. 94 [facility] Height 61 61 [facility] Blood Pressure 113/65 113/65 [facility] Body Mass Index (BMI) 25.4 25.4 [facility] Weight Measurement Method 1 1 [facility] Weight (Calculated Kilograms) 61.23 61.23 [facility] Weight 2095 2095 [facility] Temperature Source 7 7 [facility] Temperature 98.6 98.6 [facility] Respiratory Effort 1 1 [facility] Respiratory Rate 20 [address] [facility] Pulse Assessment Method 4 4 [facility] Pulse Rate 92 92 [facility] Height (Calculated Centimeters) 154.94 154. 94 [facility] Height 61 61 [facility] Blood Pressure 113/65 113/65 [facility] Body Mass Index (BMI) 25.4 25.4 [facility] Weight Measurement Method 1 1 [facility] Weight (Calculated Kilograms) 61.23 61.23 [facility] Weight 2095 2095 [facility] Temperature Source 7 7 [facility] Temperature 98.6 98.6 [facility] Respiratory Effort 1 1 [facility] Respiratory Rate 20 [address] [facility] Pulse Assessment Method 4 4 [facility] Pulse Rate 92 92 [facility] Height (Calculated Centimeters) 154.94 154. 94 [facility] Height 61 61 [facility] Blood Pressure 113/65 113/65 [facility] Body Mass Index (BMI) 25.4 25.4 [facility] Weight (Calculated Kilograms) 61.23 61.23 [facility] Weight 2160 2160 [facility] Temperature Source 7 7 [facility] Temperature 96.6 96.6 [facility] Respiratory Effort 1 1 [facility] Respiratory Rate 16 [address] [facility] Pulse Assessment Method 4 4 [facility] Pulse Rate 93 93 [facility] Height (Calculated Centimeters) 154.94 154. 94 [facility] Height 61 61 [facility] Blood Pressure 113/65 113/65 [facility] Body Mass Index (BMI) 25.4 25.4 [facility] Weight (Calculated Kilograms) 61.60 61.60 [facility] Height (Calculated Centimeters) 154.94 154. 94 [facility] Body Mass Index (BMI) 25.6 25.6 [facility] ID Date Data Source [id number] 11/22/2019 10:59:00 AM EDT [facility] Name Value Range Interpretation Code Description Data Source(s) Weight Measurement Method 1 1 [facility] Weight (Calculated Kilograms) 61.60 61.60 [facility] Weight 2172.8 2172.8 [facility] Temperature Source 7 7 [facility] Temperature 98.6 98.6 [facility] Respiratory Effort 1 1 [facility] Respiratory Rate 16 16 [facility] Pulse Assessment Method 4 4 [facility] Pulse Rate 60 60 [facility] Height (Calculated Centimeters) 154.94 154. 94 [facility] Height 61 61 [facility] Blood Pressure 107/71 107/71 [facility] Body Mass Index (BMI) 25.6 25.6 [facility] Weight Measurement Method 1 1 [facility] Weight (Calculated Kilograms) 61.60 61.60 [facility] Weight 2172.8 2172.8 [facility] Temperature Source 7 7 [facility] Temperature 98.6 98.6 [facility] Respiratory Effort 1 1 [facility] Respiratory Rate 16 [address] [facility] Pulse Assessment Method 4 4 [facility] Pulse Rate 60 60 [facility] Height (Calculated Centimeters) 154.94 154. 94 [facility] Height 61 61 [facility] Blood Pressure 107/71 107/71 [facility] Body Mass Index (BMI) 25.6 25.6 [facility] Weight Measurement Method 1 1 [facility] Weight (Calculated Kilograms) 61.60 61.60 [facility] Weight 2172.8 2172.8 [facility] Temperature Source 7 7 [facility] Temperature 99.0 99.0 [facility] Respiratory Effort 1 1 [facility] Respiratory Rate 16 [address] [facility] Pulse Assessment Method 4 4 [facility] Pulse Rate 74 74 [facility] Height (Calculated Centimeters) 154.94 154. 94 [facility] Height 61 61 [facility] Blood Pressure 94/60 94/60 [facility] Body Mass Index (BMI) 25.6 25.6 [facility] Weight Measurement Method 1 1 [facility] Weight (Calculated Kilograms) 61.60 61.60 [facility] Weight 2172.8 2172.8 [facility] Temperature Source 7 7 [facility] Temperature 99.0 99.0 [facility] Respiratory Effort 1 1 [facility] Respiratory Rate 16 16 [facility] Pulse Assessment Method 4 4 [facility] Pulse Rate 74 74 [facility] Height (Calculated Centimeters) 154.94 154. 94 [facility] Height 61 61 [facility] Blood Pressure 94/60 94/60 [facility] Body Mass Index (BMI) 25.6 25.6 [facility] Weight (Calculated Kilograms) 54.43 54.43 [facility] Height (Calculated Centimeters) 154.94 154. 94 [facility] Body Mass Index (BMI) 22.6 22.6 [facility] Weight (Calculated Kilograms) 54.43 54.43 [facility] Height (Calculated Centimeters) 154.94 154. 94 [facility] Body Mass Index (BMI) 22.6 22.6 [facility] Weight (Calculated Kilograms) 54.43 54.43 [facility] Height (Calculated Centimeters) 154.94 154. 94 [facility] Body Mass Index (BMI) 22.6 22.6 [facility] Weight (Calculated Kilograms) 54.43 54.43 [facility] Height (Calculated Centimeters) 154.94 154. 94 [facility] Body Mass Index (BMI) 22.6 22.6 [facility] ID Date Data Source [id number] 10/26/2019 11:05:00 AM EDT [facility] Hospital Name Value Range Interpretation Code Description Data Source(s) Weight (Calculated Kilograms) 54.43 54.43 [facility] Height (Calculated Centimeters) 154.94 154. 94 [facility] Body Mass Index (BMI) 22.6 22.6 [facility] Weight (Calculated Kilograms) 54.43 54.43 [facility] Height (Calculated Centimeters) 154.94 154. 94 [facility] Body Mass Index (BMI) 22.6 22.6 [facility] Weight (Calculated Kilograms) 54.43 54.43 [facility] Height (Calculated Centimeters) 154.94 154. 94 [facility] Body Mass Index (BMI) 22.6 22.6 [facility] ID Date Data Source [id number] 10/26/2019 11:05:00 AM EDT [facility] Hospital Name Value Range Interpretation Code Description Data Source(s) Weight (Calculated Kilograms) 54.43 54.43 [facility] Weight 1919 1919 [facility] Temperature Source 3 3 [facility] Temperature 97.9 97.9 [facility] Respiratory Effort 1 1 [facility] Respiratory Rate 16 16 [facility] Pulse Assessment Method 4 4 [facility] Pulse Rate 84 84 [facility] Height (Calculated Centimeters) 154.94 154. 94 [facility] Height 61 61 [facility] Blood Pressure 113/79 113/79 [facility] Body Mass Index (BMI) 22.6 22.6 [facility] Weight (Calculated Kilograms) 54.43 54.43 [facility] Weight 1919 1919 [facility] Temperature Source 3 3 [facility] Temperature 97.9 97.9 [facility] Respiratory Effort 1 1 [facility] Respiratory Rate 16 [address] [facility] Pulse Assessment Method 4 4 [facility] Pulse Rate 84 84 [facility] Height (Calculated Centimeters) 154.94 154. 94 [facility] Height 61 61 [facility] Blood Pressure 113/79 113/79 [facility] Body Mass Index (BMI) 22.6 22.6 [facility] Weight (Calculated Kilograms) 54.43 54.43 [facility] Weight 19190 [facility] Temperature Source 3 3 [facility] Temperature 97.9 97.9 [facility] Respiratory Effort 1 1 [facility] Respiratory Rate 16 16 [facility] Pulse Assessment Method 4 4 [facility] Pulse Rate 84 84 [facility] Height (Calculated Centimeters) 154.94 154. 94 [facility] Height 61 61 [facility] Blood Pressure 113/79 113/79 [facility] Body Mass Index (BMI) 22.6 22.6 [facility] Weight (Calculated Kilograms) 54.43 54.43 [facility] Weight 1919 1919 [facility] Temperature Source 7 7 [facility] Temperature 97.2 97.2 [facility] Respiratory Effort 1 1 [facility] Respiratory Rate 16 [address] [facility] Pulse Assessment Method 4 4 [facility] Pulse Rate 78 78 [facility] Height (Calculated Centimeters) 154.94 154. 94 [facility] Height 61 61 [facility] Blood Pressure 103/70 103/70 [facility] Body Mass Index (BMI) 22.6 22.6 [facility] Weight (Calculated Kilograms) 54.43 54.43 [facility] Weight 1919 1919 [facility] Temperature Source 7 7 [facility] Temperature 97.2 97.2 [facility] Respiratory Effort 1 1 [facility] Respiratory Rate 16 [address] [facility] Pulse Assessment Method 4 4 [facility] Pulse Rate 78 78 [facility] Height (Calculated Centimeters) 154.94 154. 94 [facility] Height 61 61 [facility] Blood Pressure 109/68 109/68 [facility] Body Mass Index (BMI) 22.6 22.6 [facility] Patient Treatment Plan of Care Planned Activity Planned Date Details Description Data Source (s) Mavyret 100-40 MG 10/20/2020 12:00:00 AM EDT eCW1 ([facility]) Mavyret 100-40 MG 10/20/2020 12:00:00 AM EDT eCW1 ([facility]) Mavyret 100-40 MG 10/20/2020 12:00:00 AM EDT eCW1 ([facility]) Levonorgestrel 1.5 MG Oral Tablet [EContra] 09/12/2020 12:00:00 AM EDT [facility] ([facility])
[2020-12-01 11:09] LABS: HCG, SERUM QUALITATIVE NEGATIVE (NEGATIVE)
[2020-12-01] MEDS ORDERED: SCOPOLAMINE 1MG TRANSDERMAL PATCH TOP ONE (11:10)
[2020-12-01] MEDS ORDERED: dexameTHASONE 4 MG/ML 1ML VIAL (J1100 PER 1MG) As Ordered ONE (11:58)
[2020-12-01] MEDS ORDERED: LIDOCAINE 2% MDV 20ML VIAL As Ordered ONE (11:58)
[2020-12-01] MEDS ORDERED: NEOSPORIN GU IRRIG 20 ML VIAL As Ordered ONE (11:59)
[2020-12-01] MEDS ORDERED: BUPIVACAINE HCL 0.5% 30 ML VIAL As Ordered ONE (11:59)
--- NOTE | 2020-12-01 13:59 | REP ---
INDICATION: POST OP COMPARISON: 09/03/2013 TECHNIQUE: AP, lateral, oblique view of the right foot FINDINGS: Evidence for prior fixation at the 1st and 5th metatarsal heads. The current examination demonstrates subsequent removal of the surgical screw at the 5th metatarsal head as compared with prior examination. Overlying postsurgical changes to the soft tissues noted. Remainder of the examination is relatively stable and age-appropriate/normal. IMPRESSION: Postoperative changes. <Electronically signed by Paco Mccloud > 12/01/20 [id number]
[2020-12-01 14:06] VITALS: BP 111/62
--- NOTE | 2020-12-02 10:21 | RO ---
OPERATIVE NOTE DATE OF OPERATION: 12/01/2020 PREOPERATIVE DIAGNOSIS: Painful screw 5th metatarsal right foot. POSTOPERATIVE DIAGNOSIS: Painful screw 5th metatarsal right foot. PROCEDURE: Removal of screw right foot, 5th metatarsal. SURGEON: Eliseo Miller DPM MANAGER BILLING: None. ANESTHESIA: Local, MAC. IRRIGATION: Dilute Bacitracin, Neomycin and Polymyxin B solution. HEMOSTASIS: Ankle pneumatic tourniquet at 200 mmHg. TOURNIQUET TIME: 23 minutes. DESCRIPTION OF PROCEDURE: On 12/01/2020 this 25-year-old female was taken from hospital room to operating room and placed on the operating table in supine position. Following induction of IV sedation and local and regional anesthesia the right lower extremity was prepped and draped in usual aseptic manner. Attention was directed to the lateral surface of the foot whereupon palpation a screw was palpated. Utilizing the previous cicatrix a 1.5 cm incision was placed on the lateral surface of the foot. Incision was deepened through subcutaneous tissues. Linear periosteal incision was performed. The proximal margin of the screw was noted to be embedded in bone. Therefore, utilizing an osteotome and mallet, the bone was removed with an osteotome to allow the head to freely go over the bone to allow removal utilizing a bone pick. The bone was freed from the head of the screw. A wire was then placed down the thread of the screw and the screw was removed. The wound was flushed with copious amount of dilute Bacitracin, Neomycin, and Polymyxin B solution. The periosteal structures were coapted and maintained with 3-0 Vicryl in simple interrupted type fashion, subcutaneous tissues were coapted and maintained with 4-0 Monocryl in simple interrupted type fashion and skin incision coapted and maintained with 4-0 Prolene in simple interrupted fashion. Dry, sterile dressing was applied consisting of Adaptic, 4 x 4s, 4 x 4 splint, Kerlix and Coban. Ankle pneumatic tourniquet was deflated and spontaneous capillary filling time was noted to digits 1-5 in patient's right foot. The patient having apparently tolerated the procedure well was taken from the OR to the recovery room for further monitoring by the anesthesia department. Postoperative instructions given upon discharge. JUANCARLOS
== END 2020-12-01 14:34 | disposition home or self-care (01) ==
LOC: M SDC 09:37
PROVIDERS: ATTEND Podiatrist
DX: M79.671 Pain in right foot (principal); T84.293S Other mechanical complication of internal fixation device of bones of foot and toes, sequela; F17.218 Nicotine dependence, cigarettes, with other nicotine-induced disorders; F12.10 Cannabis abuse, uncomplicated; F41.9 Anxiety disorder, unspecified; G43.909 Migraine, unspecified, not intractable, without status migrainosus; Z91.013 Allergy to seafood; Z88.1 Allergy status to other antibiotic agents
CPT/HCPCS: 20680; 36415; 73630; 84703; 97116; J0690; J1100; J2250; J3010

== ENCOUNTER 2020-12-11 13:46 | Outpatient (RCR) | payer OTHER, MEDICAID ==
[~2020-12-11 13:46] MED LIST changes: -LIDOCAINE 1% MDV 20ML VIAL SQ PRN; -LIDOCAINE 2% 100MG/5ML SDV (FOR ANES.) As Ordered ONE; -LR 1,000 ML IV ONE; -MIDAZOLAM INJ 2MG/2ML VIAL (J2250 PER 1MG) As Ordered ONE; -ceFAZolin SOD 2 GM in IV 1 EA IV ONE; -fentaNYL 100 MCG/2 ML INJECTION (J3010) As Ordered ONE; -propofoL 200 MG/20 ML VIAL As Ordered ONE
== END 2020-12-17 ==
LOC: M OUTALCOH 13:46
PROVIDERS: ATTEND Psychiatry & Neurology Psychiatry
DX: F15.20 Other stimulant dependence, uncomplicated (principal); F16.20 Hallucinogen dependence, uncomplicated; F17.200 Nicotine dependence, unspecified, uncomplicated

== ENCOUNTER 2021-01-08 14:56 | Outpatient (RCR) | payer MEDICAID, OTHER ==
[~2021-01-08 14:56] MED LIST changes: +FLUO-96 PO; -FLUO20CA20 PO
== END 2021-01-16 ==
LOC: M OUTALCOH 14:56
PROVIDERS: ATTEND Psychiatry & Neurology Psychiatry
DX: F15.20 Other stimulant dependence, uncomplicated (principal); F16.20 Hallucinogen dependence, uncomplicated; F17.200 Nicotine dependence, unspecified, uncomplicated

== ENCOUNTER 2021-02-12 16:00 | Outpatient (RCR) | payer MEDICAID ==
[~2021-02-12 16:00] MED LIST changes: -FLUO-96 PO; +FLUO20CA20 PO
== END 2021-02-16 ==
LOC: M OUTALCOH 16:00
PROVIDERS: ATTEND Psychiatry & Neurology Psychiatry
DX: F15.20 Other stimulant dependence, uncomplicated (principal); F16.20 Hallucinogen dependence, uncomplicated; F17.200 Nicotine dependence, unspecified, uncomplicated

== ENCOUNTER 2021-02-23 10:00 | Outpatient (RCR) | payer MEDICAID, OTHER ==
[~2021-02-23 10:00] MED LIST changes: +FLUO-96 PO; -FLUO20CA20 PO
== END 2021-03-19 ==
LOC: M OUTALCOH 10:00
PROVIDERS: ATTEND Psychiatry & Neurology Psychiatry
DX: F15.20 Other stimulant dependence, uncomplicated (principal); F16.20 Hallucinogen dependence, uncomplicated; F17.200 Nicotine dependence, unspecified, uncomplicated

== ENCOUNTER 2021-03-05 23:33 | Emergency (ER) | payer OTHER ==
[~2021-03-05] VITALS: Ht 157.5 cm; Wt 74.1 kg
[2021-03-05 23:33] VITALS: BP 128/79
== END 2021-03-06 00:08 | disposition left against medical advice (07) ==
LOC: M ED 23:33
DX: Z53.21 Procedure and treatment not carried out due to patient leaving prior to being seen by health care provider (principal)

== ENCOUNTER → 2021-04-02 | Outpatient (CLI) | payer OTHER ==
[2021-04-02 13:43] LABS: BASO % 0.4 % (0.0-1.0); EOS % 0.6 % (0.0-3.0); HEMATOCRIT 40.1 % (36.0-47.0); HEMOGLOBIN 13.2 g/dl (12.0-15.5); LYMPH # 1.7 10^3/uL (1.5-5.0); LYMPH % 23.3 % (24.0-44.0); MEAN CORPUSCULAR HEMOGLOBIN 29.3 pg (27.0-33.0); MEAN CORPUSCULAR HGB CONC 32.9 g/dl (32.0-36.5); MEAN CORPUSCULAR VOLUME 89.1 fl (80.0-96.0); MONO # 0.4 10^3/uL (0.0-0.8); MONO % 4.8 % (2.0-8.0); NEUTROPHILS # 5.1 10^3/uL (1.5-8.5); NEUTROPHILS % 70.5 % (36.0-66.0); PLATELET COUNT, AUTOMATED 171 10^3/uL (150-450); WHITE BLOOD COUNT 7.2 10^3/uL (4.0-10.0)
[2021-04-02 15:11] LABS: HIV 1&2 SCREEN CENTAUR NEGATIVE (NEGATIVE)
[2021-04-02 15:14] LABS: HEPATITIS C VIRUS ABY INDEX > 11.0 INDEX (<0.8)
[2021-04-02 15:24] LABS: GC DNA AMPLIFICATION NEGATIVE (NEGATIVE)
== END ==
LOC: M PLALAB 10:51
PROVIDERS: ATTEND Obstetrics & Gynecology
DX: Z34.82 Encounter for supervision of other normal pregnancy, second trimester (principal); Z3A.12 12 weeks gestation of pregnancy

== ENCOUNTER 2021-04-17 13:23 | Emergency (ER) | payer OTHER ==
[~2021-04-17] VITALS: Ht 157.5 cm; Wt 72.7 kg
[2021-04-17] MEDS ORDERED: MULTTAB20 PO (13:34)
[2021-04-17] MEDS ORDERED: ONDA-83 (13:34)
[2021-04-17] MEDS ORDERED: NS 1,000 ML IV ONE (16:15)
[2021-04-17] MEDS ORDERED: ONDANSETRON 4MG/2ML VIAL IV ONE (16:15)
[2021-04-17 16:54] LABS: BASO % 0.2 % (0.0-1.0); EOS % 0.5 % (0.0-3.0); HEMOGLOBIN 13.2 g/dl (12.0-15.5); LYMPH # 1.7 10^3/uL (1.5-5.0); LYMPH % 19.5 % (24.0-44.0); MEAN CORPUSCULAR HEMOGLOBIN 29.9 pg (27.0-33.0); MEAN CORPUSCULAR HGB CONC 33.8 g/dl (32.0-36.5); MEAN CORPUSCULAR VOLUME 88.2 fl (80.0-96.0); MONO # 0.4 10^3/uL (0.0-0.8); MONO % 4.8 % (2.0-8.0); NEUTROPHILS # 6.4 10^3/uL (1.5-8.5); NEUTROPHILS % 74.6 % (36.0-66.0); PLATELET COUNT, AUTOMATED 163 10^3/uL (150-450); RED BLOOD COUNT 4.42 10^6/uL (4.00-5.40); WHITE BLOOD COUNT 8.6 10^3/uL (4.0-10.0)
[2021-04-17 17:20] LABS: ALBUMIN 3.6 GM/DL (3.2-5.2); ALT/SGPT 23 U/L (12-78); BILIRUBIN,TOTAL 0.4 MG/DL (0.2-1.0); BLOOD UREA NITROGEN 7 MG/DL (7-18); CALCIUM LEVEL 9.1 MG/DL (8.5-10.1); CARBON DIOXIDE LEVEL 25 MEQ/L (21-32); CHLORIDE LEVEL 106 MEQ/L (98-107); GLOMERULAR FILTRATION RATE > 60.0 (>60); GLUCOSE, FASTING 80 MG/DL (70-100); MAGNESIUM LEVEL 2.1 MG/DL (1.8-2.4); POTASSIUM SERUM 3.8 MEQ/L (3.5-5.1); SODIUM LEVEL 137 MEQ/L (136-145)
[2021-04-17] MEDS ORDERED: ACETAMINOPHEN TAB 650MG DOSE (2X325MG) PO ONE (17:50)
[2021-04-17] MEDS ORDERED: METOCLOPRAMIDE INJ 10MG/2ML VIAL (J2765 PER 1) IV ONE (19:00)
[2021-04-17 19:53] VITALS: BP 104/55
[2021-04-17] MEDS ORDERED: REGL10TA6 PO (21:02)
== END 2021-04-17 21:20 | disposition home or self-care (01) ==
LOC: M ED 13:23
DX: O26.892 Other specified pregnancy related conditions, second trimester (principal); R51.9 Headache, unspecified; F17.200 Nicotine dependence, unspecified, uncomplicated; O99.341 Other mental disorders complicating pregnancy, first trimester; F41.8 Other specified anxiety disorders; F31.9 Bipolar disorder, unspecified; Z91.013 Allergy to seafood; Z91.048 Other nonmedicinal substance allergy status; Z79.899 Other long term (current) drug therapy; Z3A.00 Weeks of gestation of pregnancy not specified
CPT/HCPCS: 80053; 81001; 83735; 85025; 87086; 96361; 96374; 96375; 99284; J2405; J2765

== ENCOUNTER → 2021-04-20 | Outpatient (CLI) | payer OTHER ==
[~2021-04-20] MED LIST changes: +MULTTAB20 PO; +ONDA-83; +REGL10TA6 PO
== END ==
LOC: M PLALAB 13:44
PROVIDERS: ATTEND Obstetrics & Gynecology
DX: Z34.82 Encounter for supervision of other normal pregnancy, second trimester (principal)

== ENCOUNTER → 2021-05-30 | Outpatient (CLI) | payer OTHER | LOC: M WHC 11:41 | PROVIDERS: ATTEND Obstetrics & Gynecology | DX: Z34.92 Encounter for supervision of normal pregnancy, unspecified, second trimester (principal) ==

== ENCOUNTER → 2021-06-29 | Outpatient (CLI) | payer OTHER | LOC: M WHC 12:32 | PROVIDERS: ATTEND Obstetrics & Gynecology | DX: Z34.92 Encounter for supervision of normal pregnancy, unspecified, second trimester (principal); Z3A.24 24 weeks gestation of pregnancy ==

== ENCOUNTER → 2021-08-29 | Outpatient (CLI) | payer OTHER | LOC: M WHC 11:42 | PROVIDERS: ATTEND Specialist | DX: Z34.83 Encounter for supervision of other normal pregnancy, third trimester (principal); Z3A.27 27 weeks gestation of pregnancy ==

== ENCOUNTER → 2021-09-07 | Outpatient (CLI) | payer OTHER ==
[2021-09-07 14:16] LABS: HEMATOCRIT 34.2 % (36.0-47.0); MEAN CORPUSCULAR HEMOGLOBIN 29.9 pg (27.0-33.0); MEAN CORPUSCULAR HGB CONC 32.2 g/dl (32.0-36.5); MEAN CORPUSCULAR VOLUME 92.9 fl (80.0-96.0); PLATELET COUNT, AUTOMATED 126 10^3/uL (150-450); RED BLOOD COUNT 3.68 10^6/uL (4.00-5.40); WHITE BLOOD COUNT 6.7 10^3/uL (4.0-10.0)
== END ==
LOC: M PLALAB 11:08
PROVIDERS: ATTEND Specialist
DX: Z34.82 Encounter for supervision of other normal pregnancy, second trimester (principal)

== ENCOUNTER → 2021-09-12 | Outpatient (REF) | payer OTHER | LOC: M SFHCWAGY 12:53 | PROVIDERS: ATTEND Obstetrics & Gynecology | DX: Z36.85 Encounter for antenatal screening for Streptococcus B (principal) ==

== ENCOUNTER 2021-10-05 22:12 | Inpatient (IN) | payer OTHER ==
[~2021-10-05] VITALS: Ht 157.5 cm; Wt 87.0 kg
[~2021-10-05 22:12] MED LIST changes: +B-122500 PO; +RA M500C PO
[2021-10-05 22:30] VITALS: BP 127/64
[2021-10-05 23:13] LABS: HEMATOCRIT 32.2 % (36.0-47.0); HEMOGLOBIN 10.8 g/dl (12.0-15.5); MEAN CORPUSCULAR HEMOGLOBIN 30.2 pg (27.0-33.0); MEAN CORPUSCULAR HGB CONC 33.5 g/dl (32.0-36.5); MEAN CORPUSCULAR VOLUME 89.9 fl (80.0-96.0); PLATELET COUNT, AUTOMATED 121 10^3/uL (150-450); RED BLOOD COUNT 3.58 10^6/uL (4.00-5.40); WHITE BLOOD COUNT 7.4 10^3/uL (4.0-10.0)
[2021-10-05] MEDS: miSOPROStol 50MCG 1/2 TABLET SL SCH (23:43)
[2021-10-05 23:49] LABS: AMPHETAMINES URINE REFLEX NEGATIVE (NEGATIVE); BARBITURATES URINE REFLEX NEGATIVE (NEGATIVE); BENZODIAZEPINES URINE REFLEX NEGATIVE (NEGATIVE); COCAINE METABOLITE URINE REFLE NEGATIVE (NEGATIVE); METHADONE URINE REFLEX NEGATIVE (NEGATIVE); OPIATES URINE REFLEX NEGATIVE (NEGATIVE); PHENCYCLIDINE URINE REFLEX NEGATIVE (NEGATIVE)
[2021-10-06] VITALS (49 sets, daily range): BP systolic 95–157; BP diastolic 50–96
[2021-10-06 03:12] LABS: CANNABINOIDS URINE REFLEX PENDING CONFIRMATION (NEGATIVE)
[2021-10-06] MEDS: miSOPROStol 50MCG 1/2 TABLET SL SCH ×2 (03:33→07:45)
[2021-10-06] MEDS ORDERED: OXYTOCIN DRIP 30 UNITS in IV 1 EA IV SCH (14:00)
[2021-10-06] MEDS: LR 1,000 ML IV SCH ×2 (14:30→18:42)
[2021-10-06] MEDS ORDERED: FENTANYL 2MCG/ML ROPIVACAINE 0.2% IN 0.9% NACL 100ML IVBAG As Ordered ONE (16:21)
[2021-10-06] MEDS ORDERED: diphenhydrAMINE 50MG/ML VIAL (J1200) IV PRN (16:50)
[2021-10-06] MEDS ORDERED: FENTANYL/ROPIVACAINE/NACL BAG 100 ML EPIDURAL SCH (16:50)
[2021-10-06] MEDS ORDERED: ONDANSETRON 4MG 2ML VIAL IV PRN (16:50)
[2021-10-06] MEDS ORDERED: EPIDURAL/PCA KEYS XX PRN (16:50)
[2021-10-06] MEDS ORDERED: LR 500 ML IV PRN (16:50)
[2021-10-06] MEDS ORDERED: NALOXONE INJ 0.4MG/1ML VIAL (J2310 PER 1MG) IV PRN (16:50)
[2021-10-06] MEDS: ePHEDrine SULFATE 25 MG/5 ML(5MG/ML) SYRINGE IVP PRN ×3 (21:40→22:46)
[2021-10-07] VITALS (7 sets, daily range): BP systolic 91–150; BP diastolic 46–94
[2021-10-07] MEDS ORDERED: ONDANSETRON 4MG 2ML VIAL IV PRN (01:05)
[2021-10-07] MEDS ORDERED: IBUPROFEN 600MG TAB PO PRN (01:05)
[2021-10-07] MEDS ORDERED: ACETAMINOPHEN 500 MG TAB PO PRN (01:05)
[2021-10-07] MEDS ORDERED: DIBUCAINE 1% OINTMENT 30GM TOP PRN (01:05)
[2021-10-07] MEDS ORDERED: RHOGAM 300 MCG (1500 IU) INJ (J2790) IM SCH (01:05)
[2021-10-07] MEDS ORDERED: ACETAMINOPHEN TAB 650MG DOSE (2X325MG) PO PRN (01:05)
[2021-10-07] MEDS ORDERED: METHYLERGONOVINE MALEATE 0.2 MG TAB PO PRN (01:05)
[2021-10-07] MEDS ORDERED: DOCUSATE SODIUM 100MG CAPSULE PO PRN (01:05)
[2021-10-07] MEDS ORDERED: OXYTOCIN DRIP 30 UNITS in IV 1 EA IV ONE (01:05)
[2021-10-07] MEDS: IBUPROFEN 800 MG TAB PO PRN ×2 (01:30→08:46)
[2021-10-07] MEDS: PRENATAL VITAMINS CHEWABLE TABLET PO SCH (09:00)
[2021-10-07] MEDS: MORPHINE 4 MG/ML 1ML VIAL/SYRINGE IV ONE ×2 (10:25→11:07)
[2021-10-07] MEDS ORDERED: PROMETHAZINE 25MG/ML 1ML VIAL IV ONE (10:25)
[2021-10-07] MEDS: KETOROLAC 30 MG/ML 1ML VIAL IV SCH ×2 (16:37→21:08)
[2021-10-08] MEDS: IBUPROFEN 800 MG TAB PO SCH ×2 (05:31→13:50)
[2021-10-08 06:00] VITALS: BP 98/54
[2021-10-08] MEDS: PRENATAL VITAMINS CHEWABLE TABLET PO SCH (08:21)
[2021-10-08] MEDS ORDERED: IBUP80TA PO (10:37)
[2021-10-08] MEDS ORDERED: ACET-683 PO (10:37)
[2021-10-09] MEDS ORDERED: MEASLES,MUMPS,RUBELLA VACCINE INJ (MMR-II) (90707) SC.IMMUN ONE (09:00)
[2021-10-11 06:07] LABS: Cannabinoid Positive (.); Carboxy THC Conf, MS, UR 32 ng/mL (Cutoff=10)
== END 2021-10-08 14:37 | disposition home or self-care (01) | DRG 560 ==
LOC: M LDI 22:12 → M OBS 10-07 01:39
PROVIDERS: ADMIT Specialist; ATTEND Specialist
PROC: 10E0XZZ Delivery of Products of Conception, External Approach (ICD-10-PCS; principal; 2021-10-06)
PROC: 10907ZC Drainage of Amniotic Fluid, Therapeutic from Products of Conception, Via Natural or Artificial Opening (ICD-10-PCS; 2021-10-06)
PROC: 3E033VJ Introduction of Other Hormone into Peripheral Vein, Percutaneous Approach (ICD-10-PCS; 2021-10-06)
PROC: 3E0DXGC Introduction of Other Therapeutic Substance into Mouth and Pharynx, External Approach (ICD-10-PCS; 2021-10-06)
DX: O80 Encounter for full-term uncomplicated delivery (principal); Z37.0 Single live birth; Z3A.39 39 weeks gestation of pregnancy

== ENCOUNTER → 2022-03-14 | Outpatient (REF) | payer OTHER ==
[~2022-03-14] MED LIST changes: +ACET-683 PO; +IBUP80TA PO
== END ==
LOC: M PLALAB 10:12
PROVIDERS: ATTEND Specialist
DX: Z01.419 Encounter for gynecological examination (general) (routine) without abnormal findings (principal); R87.618 Other abnormal cytological findings on specimens from cervix uteri
CPT/HCPCS: 87624; G0123

== ENCOUNTER → 2022-04-04 | Outpatient (REF) | payer OTHER | LOC: M SFHCWAGY 17:08 | PROVIDERS: ATTEND Specialist | DX: N87.0 Mild cervical dysplasia (principal) ==

== ENCOUNTER → 2022-05-21 | Outpatient (CLI) | payer OTHER | LOC: M WUC 14:31 | PROVIDERS: ATTEND Nurse Practitioner Family | DX: M25.522 Pain in left elbow (principal) ==

== ENCOUNTER → 2022-10-17 | Outpatient (REF) | payer OTHER | LOC: M PLALAB 16:00 | PROVIDERS: ATTEND Specialist | DX: N87.0 Mild cervical dysplasia (principal) | CPT/HCPCS: 87624; G0123 ==

== ENCOUNTER → 2022-12-10 | Outpatient (CLI) | payer OTHER | LOC: M WHC 10:49 | PROVIDERS: ATTEND Specialist | DX: F52.6 Dyspareunia not due to a substance or known physiological condition (principal) ==

== ENCOUNTER → 2023-12-24 | Outpatient (REF) | payer OTHER ==
[2023-12-29 16:42] LABS: HPV APTIMA Not Detected (Not Detected)
== END ==
LOC: M SFHCWAGY 13:59
PROVIDERS: ATTEND Specialist
DX: Z12.4 Encounter for screening for malignant neoplasm of cervix (principal); R87.610 Atypical squamous cells of undetermined significance on cytologic smear of cervix (ASC-US); R87.5 Abnormal microbiological findings in specimens from female genital organs